=== PATIENT | female | born 1945 | race Caucasian/White ===

== ENCOUNTER 2020-01-29 11:06 | Inpatient (IN) | payer MEDICARE ==
--- NOTE | 2020-01-29 12:08 | RAD ---
RADIOGRAPH CHEST 1 VIEW: DATE: 01/29/2020 TIME: 11:59 AM HISTORY: 74-year-old, with positive female presents with nausea and vomiting COMPARISON: none FINDINGS: Faint, patchy ill-defined infiltrate-like densities at left midlung zone and retrocardiac portion of left lower lobe. Small, faint such region at right midlung zone. No cardiomegaly or pneumothorax. Lateral costophrenic angles are sharp. IMPRESSION: Bilateral infiltrates, left greater than right: Suspicious for viral pneumonia.
[2020-01-29 12:29] LABS: Bacteria/HPF 4+ HPF (None Seen); Bilirubin Negative (Negative); Blood, Urine 3+ (Negative); Clarity Turbid (Clear); Glucose, Urine (Dipstick) Greater than 1000 mg/dL (Negative); Ketone, Urine 40 mg/dL (Negative); Leukocyte Negative Leu/uL (Negative); Nitrite 1+ (Negative); Protein, Urine (Dipstick) 100 mg/dL (Neg-Trace); Specific Gravity, Urine 1.026 (1.002-1.036); Squamous Epithelial 0-3 HPF (0-3); Urobilinogen Normal mg/dL (Less than 2); pH, Urine 5.5 (5.0-9.0)
[2020-01-29 12:48] LABS: Analyzer IN Cardio ER; Base Excess (BEa) -3.6 mEq/L (-2.0 to +3.0); CO2 Tension 32.4 mmHg (35.0-45.0); Calcium, Ionized (arterial) 1.14 mmol/L (1.12-1.30); Carboxyhemoglobin (COHb) 0.4 gm% (0.0-3.0); Hemoglobin (Hb) 13.8 g/dL (12.0-16.0); Potassium - ABG Lab 3.44 mmol/L (3.70-5.30); pH, Arterial 7.41 (7.35-7.45)
[2020-01-29 12:50] LABS: #Lymphocytes 1.2 thou/uL (1.20-3.40); #Monocytes 0.6 thou/uL (0.11-0.59); #Neutrophils 7.7 thou/uL (1.40-6.50); %Basophils 0.1 % (0.0-1.0); %Eosinophils 0.1 % (0.0-10.0); %Lymphocytes 12.6 % (21.0-51.0); %Monocytes 5.8 % (0.0-10.0); %Neutrophils 81.4 % (42.0-75.0); Hemoglobin 13.5 g/dL (12.0-16.0); Mean Corpuscular HGB CONC 35.2 g/dL (32.0-36.0); Mean Corpuscular Hemoglobin 31.6 pg (27.0-31.0); Mean Corpuscular Volume 89.7 fL (78.0-98.0); Platelet Count 160 thou/uL (130-400); Red Blood Cell (RBC) Count 4.28 mill/uL (4.20-5.40); White Blood Cell (WBC) Count 9.4 thou/uL (4.8-10.8)
[2020-01-29 12:51] LABS: O2 Tension (PaO2), arterial 45.3 mmHg (> 70.0); Puncture Site LRA
[2020-01-29] MEDS ORDERED: Azithromycin 500 MG VIAL ONE (12:53)
[2020-01-29] MEDS ORDERED: cefTRIAXone\\ROCEPHIN 2 GM VIAL ONE (12:53)
[2020-01-29 13:11] LABS: ALT (SGPT) 22 U/L (8-55); AST (SGOT) 49 U/L (5-34); Albumin 3.6 g/dL (3.4-4.8); Alkaline Phosphatase 42 U/L (40-110); Anion Gap 17 mmol/L (10-20); BUN (Urea Nitrogen) 23 mg/dL (9.8-20.1); Bilirubin, Total 0.8 mg/dL (0.2-1.2); Calc. Creatinine Clearance 0 mL/min (70-130); Calcium 8.4 mg/dL (7.8-10.44); Carbon Dioxide 22 mmol/L (23-31); Chloride 99 mmol/L (98-107); Estimated GFR-MDRD 57; Glucose 110 mg/dL (83-110); Potassium 3.5 mmol/L (3.5-5.1); Protein, Total 6.6 g/dL (6.0-8.3); Sodium 134 mmol/L (136-145)
[2020-01-29 13:35] LABS: CKMB 6.4 ng/mL (0-6.6)
[2020-01-29] MEDS ORDERED: Iopamidol-370 76% 500 ML 1 ML ONE (13:49)
--- NOTE | 2020-01-29 15:05 | CT ---
CT PULMONARY ANGIOGRAM WITH IV CONTRAST AND 3D POSTPROCESSING: Date: 01/29/2020 HISTORY: Nausea, vomiting, weakness, COVID-positive. FINDINGS: There is good contrast opacification of the pulmonary arterial vasculature without filling defects to suggest pulmonary embolism. There are vascular calcifications without aneurysm or dissection of the thoracic aorta. Calcified lymph nodes are seen in the mediastinum consistent with old granulomatous d isease. No pleural or pericardial effusions are seen. There are patchy peripheral ground-glass opacit ies in the lung vincent bilaterally. Upper abdominal tomograms demonstrate changes of cholecystectomy. There are degenerative changes in the spine. IMPRESSION: 1. No CT evidence of pulmonary embolism. 2. Findings are consistent with COVID-19 pneumonia. POS: AH
[2020-01-29] MEDS ORDERED: Ondansetron PF 4 MG/2 ML Vial IVP PRN (15:14)
[2020-01-29] MEDS ORDERED: Acetaminophen 325 MG TAB PO PRN (15:14)
[2020-01-29] MEDS ORDERED: Dexamethasone 10 MG/ML VIAL SLOW IVP SCH (15:15)
[2020-01-29] MEDS ORDERED: Albuterol 200 PUFF (6.7GM INHALER) ONE (17:13)
[2020-01-29] MEDS ORDERED: Pharmacy to Dose REMDESIVIR IVPB PRN (17:30)
[2020-01-29 20:23] LABS: Troponin I 0.015 ng/mL (< 0.028)
--- NOTE | 2020-01-29 21:39 | HP ---
CHIEF COMPLAINT: Shortness of breath. HISTORY OF PRESENT ILLNESS: The patient is a 74-year-old female, who presents to the hospital with complaints of shortness of breath, which has been progressively gotten worse over the weekend. The patient states that where she works, her co-worker was infected with COVID at that time, so she came into the ER, I believe on the to get tested. At this time, she was notified that she was COVID positive. The patient stated that her condition worsened to the point that she became very weak. She was unable to eat or drink very much. When she was brought into the hospital, her sats were noted to be 86% on room air. However, by the EMS report, she was even lower than that. At this time, an ABG was done, which indicated significant hypoxia of PO2 of 45. At this time, she was put on a high flow and admitted to the hospital. PAST MEDICAL HISTORY: She has a history of; 1. Hyperlipidemia. 2. Hypertension. 3. Diabetes. PAST SURGICAL HISTORY: She has had a cholecystectomy. SOCIAL HISTORY: Denies any alcohol use, drug use. No smoking history. She is a full code. FAMILY HISTORY: No history of heart disease or stroke. ALLERGIES: NO KNOWN DRUG ALLERGIES. MEDICATIONS: She takes; 1. Atorvastatin 10 mg daily. 2. Metoprolol 50 mg daily. 3. Ramipril 10 mg daily. 4. Venlafaxine 37.5 mg daily. 5. Amlodipine 10 mg daily. 6. Jardiance 25 mg daily. 7. Januvia 100 mg daily. PHYSICAL EXAMINATION: VITAL SIGNS: As of the following; temperature of GENERAL: She is awake, alert, does not appear in any distress. CV: S1, S2 present. No murmurs, rubs, or gallops. ABDOMEN: Soft, nontender. Bowel sounds are present x2. LUNGS: Clear to auscultation. No rhonchi or wheezes noted. EXTREMITIES: No edema. Pedal pulses are present x2. NEUROVASCULAR: There are no focal deficits noted. SKIN: No cuts, lesions, or bruises noted. LABORATORY RESULTS: As of the following; troponin is normal. LDH is 611. CRP is 10. CT angio, no pulmonary emboli, however, consistent with COVID-like pattern. Troponin is mildly elevated, initially was 0.031. Her repeat one was normal. Sodium 134, potassium of 3.5, BUN 20, creatinine 0.96. PH of 7.41, pCO2 of 32.4, pO2 of 45.3. Her WBCs of 9.4, hemoglobin of 13.5, hematocrit of 38.4, platelets of 160. Her urinalysis was done, indicated 4+ bacteria. ASSESSMENT AND PLAN: The patient is a very pleasant 74-year-old female, who presents to the hospital with complaints of shortness of breath. 1. Acute hypoxemic respiratory failure, most likely secondary to COVID pneumonia. We will start the patient on some steroids. She will continue high-flow. She is most likely a candidate for remdesivir. We will talk with Infectious Disease. 2. Mildly elevated troponins, most likely demand related from the shortness of breath. We will trend it. Most likely, we will not be able to get an echo, given the fact that she is COVID. 3. Hypertension. We will continue home medications. 4. COVID pneumonia. Again, we will start her on some steroids and we will talk with Dr. Ma of remdesivir. 5. DVT prophylaxis. We will put the patient on Lovenox b.i.d. Job ID: [id number]
[2020-01-29] MEDS ORDERED: REMDESIVIR (EUA) 200 MG in Sodium Chloride 0.9% 250 ML 210 ML IV SCH (22:00)
[2020-01-30] MEDS: Enoxaparin Sodium 40 MG/0.4 ML SYRINGE SC SCH ×3 (00:46→21:16)
[2020-01-30] MEDS ORDERED: Dexamethasone 10 MG/ML VIAL SLOW IVP SCH (01:00)
[2020-01-30 05:02] LABS: #Lymphocytes 0.8 thou/uL (1.20-3.40); #Monocytes 0.3 thou/uL (0.11-0.59); #Neutrophils 7.8 thou/uL (1.40-6.50); %Basophils 0.2 % (0.0-1.0); %Lymphocytes 8.6 % (21.0-51.0); %Monocytes 2.8 % (0.0-10.0); %Neutrophils 88.4 % (42.0-75.0); Hemoglobin 12.8 g/dL (12.0-16.0); Mean Corpuscular HGB CONC 33.5 g/dL (32.0-36.0); Mean Corpuscular Hemoglobin 29.8 pg (27.0-31.0); Mean Platelet Volume 7.9 fL (7.4-10.4); Platelet Count 169 thou/uL (130-400); RBC Distribution Width 11.9 % (11.5-14.5); Red Blood Cell (RBC) Count 4.28 mill/uL (4.20-5.40); White Blood Cell (WBC) Count 8.8 thou/uL (4.8-10.8)
[2020-01-30 05:12] LABS: Anion Gap 15 mmol/L (10-20); BUN (Urea Nitrogen) 18 mg/dL (9.8-20.1); Calc. Creatinine Clearance 94 mL/min (70-130); Calcium 8.1 mg/dL (7.8-10.44); Carbon Dioxide 20 mmol/L (23-31); Chloride 104 mmol/L (98-107); Estimated GFR-MDRD 72; Glucose 101 mg/dL (83-110); Potassium 3.6 mmol/L (3.5-5.1); Sodium 135 mmol/L (136-145)
[2020-01-30] MEDS ORDERED: Dextrose 5% in Water 1,000 ML IV PRN (07:38)
[2020-01-30] MEDS ORDERED: Dextrose 50% Abboject 50 ML SYRINGE SLOW IVP PRN (07:38)
[2020-01-30] MEDS ORDERED: HumaLOG 300 UNITS/3 ML VIAL SC PRN (07:38)
[2020-01-30] MEDS: Ascorbic Acid 500 mg Chewable Tablet PO SCH (08:20)
[2020-01-30] MEDS: Zinc Sulfate 220 MG CAP PO SCH (08:21)
[2020-01-30] MEDS: Ramipril 5 MG CAP PO SCH (08:21)
[2020-01-30] MEDS: Amlodipine 10 MG TAB PO SCH (08:21)
[2020-01-30] MEDS: Venlafaxine XR 37.5 MG CAP PO SCH (08:21)
[2020-01-30] MEDS: Alogliptin 25 MG TAB PO SCH (08:21)
[2020-01-30] MEDS: Dexamethasone 4 mg/ml Vial SLOW IVP SCH (08:22)
[2020-01-30] MEDS: Atorvastatin Calcium 10 MG TAB PO SCH (08:22)
[2020-01-30] MEDS: Empagliflozin 25 MG TAB PO SCH (08:27)
[2020-01-30] MEDS ORDERED: Non-Formulary Item 1 EACH (Ramipril [Ramipril] 10 MG Capsule) PO SCH (09:00)
[2020-01-30] MEDS: cefTRIAXone\\ROCEPHIN 1 GM in Sodium Chloride 0.9% 100 ML IVPB SCH (12:02)
--- NOTE | 2020-01-30 13:58 | PDOC.HOSPP ---
- Subjective Encounter Date: 01/30/20 Encounter Time: 09:00 Subjective: Patient seen for follow-up regarding COVID-19 pneumonia. Reports shortness of breath with exertion. Denies chest pain. - Objective Vital Signs & Weight: Vital Signs (12 hours) Temp Pulse Resp BP Pulse Ox 01/30/20 11:00 77 28 H 145/58 H 96 01/30/20 08:21 79 01/30/20 08:00 98.4 F 76 36 H 121/56 L 94 L 01/30/20 03:42 98.8 F 79 18 131/59 L 97 Weight Weight 204 lb 11.2 oz Result Diagrams: 01/30/20 04:30 01/30/20 04:30 Additional Labs: Accuchecks 01/30/20 10:33 POC Glucose 145 H Labs and MAR reviewed by me EKG Reviewed by me: Yes (Telemetry: NSR) Hospitalist ROS - Review of Systems Constitutional: denies: fever, chills, sweats, weakness, malaise Respiratory: reports: cough, dry, SOB with excertion. denies: shortness of breath, hemoptysis, pleuritic pain, sputum, wheezing Cardiovascular: denies: chest pain, palpitations, orthopnea, paroxysmal noc. dyspnea, edema, light headedness Gastrointestinal: denies: nausea, vomiting, abdominal pain, diarrhea, constipation, melena, hematochezia Genitourinary: denies: dysuria, frequency, incontinence, hematuria, retention Skin: denies: rash, lesions, yoni, bruising - Medication Medications: Active Medications Generic Name Dose Route Start Last Admin Trade Name Hiq PRN Reason Stop Dose Admin Alogliptin Benzoate 25 mg 01/30/20 09:00 01/30/20 08:21 Alogliptin 25 Mg Tab PO 25 mg DAILY PIPO Administration Amlodipine Besylate 10 mg 01/30/20 09:00 01/30/20 08:21 Amlodipine 10 Mg Tab PO 10 mg DAILY PIPO Administration Ascorbic Acid 1,000 mg 01/30/20 09:00 01/30/20 08:20 Ascorbic Acid 500 Mg Chewable Tablet PO 1,000 mg DAILY PIPO Administration Atorvastatin Calcium 10 mg 01/30/20 09:00 01/30/20 08:22 Atorvastatin Calcium 10 Mg Tab PO 10 mg DAILY PIPO Administration Dexamethasone 6 mg 01/30/20 09:00 01/30/20 08:22 Dexamethasone 4 Mg/Ml Vial SLOW IVP 6 mg DAILY PIPO Administration Enoxaparin Sodium 40 mg 01/29/20 21:00 01/30/20 08:20 Enoxaparin Sodium 40 Mg/0.4 Ml Syringe SC 40 mg BID PIPO Administration Ceftriaxone Sodium 1 gm/ 100 mls @ 200 mls/hr 01/30/20 13:00 01/30/20 12:02 Sodium Chloride IVPB 100 mls Q24HR PIPO Administration Miscellaneous Medication 25 mg 01/30/20 09:00 01/30/20 08:27 Empagliflozin 25 Mg Tab PO 25 mg DAILY PIPO Administration Ramipril 10 mg 01/30/20 09:00 01/30/20 08:21 Ramipril 5 Mg Cap PO 10 mg DAILY PIPO Administration Sodium Chloride 10 ml 01/29/20 21:00 01/30/20 08:27 Flush - Normal Saline 10 Ml Syringe IVF 10 ml Q12HR PIPO Administration Venlafaxine HCl 37.5 mg 01/30/20 09:00 01/30/20 08:21 Venlafaxine Xr 37.5 Mg Cap PO 37.5 mg DAILY PIPO Administration Zinc Sulfate 220 mg 01/30/20 09:00 01/30/20 08:21 Zinc Sulfate 220 Mg Cap PO 220 mg DAILY PIPO Administration - Exam General Appearance: awake alert General - other findings: Obese ENT: normocephalic atraumatic Neck: supple, symmetric, no thyromegaly, no lymphadenopathy Heart: RRR, no gallops, no rubs, normal peripheral pulses Respiratory: CTAB, no wheezes, no rales, no ronchi, normal chest expansion Gastrointestinal: soft, non-tender, non-distended, normal bowel sounds Psychiatric: normal affect, normal behavior, A&O x 3 Hosp A/P (1) Pneumonia due to COVID-19 virus Code(s): U07.1 - COVID-19; J12.89 - OTHER VIRAL PNEUMONIA Status: Acute (2) Acute respiratory failure with hypoxia Code(s): J96.01 - ACUTE RESPIRATORY FAILURE WITH HYPOXIA Status: Acute (3) Urinary tract infection Status: Acute (4) Dyslipidemia Code(s): E78.5 - HYPERLIPIDEMIA, UNSPECIFIED Status: Chronic (5) Diabetes mellitus Code(s): E11.9 - TYPE 2 DIABETES MELLITUS WITHOUT COMPLICATIONS Status: Chronic (6) Hypertension Code(s): I10 - ESSENTIAL (PRIMARY) HYPERTENSION Status: Chronic - Plan Hypertension patient is on remdesivir, vitamin C and zinc. She is also on dexamethasone. Currently on high flow oxygen. Hypertension controlled. Reasonable control of blood sugars.
[2020-01-30] MEDS: REMDESIVIR (EUA) 100 MG in Sodium Chloride 0.9% 250 ML 230 ML IV SCH (21:17)
[2020-01-31 06:05] LABS: ALT (SGPT) 24 U/L (8-55); AST (SGOT) 45 U/L (5-34); Albumin 3.2 g/dL (3.4-4.8); Alkaline Phosphatase 47 U/L (40-110); Bilirubin, Direct 0.3 mg/dL (0.1-0.3); Bilirubin, Total 0.6 mg/dL (0.2-1.2); Protein, Total 6.4 g/dL (6.0-8.3)
[2020-01-31] MEDS: Empagliflozin 25 MG TAB PO SCH (08:10)
[2020-01-31] MEDS: Enoxaparin Sodium 40 MG/0.4 ML SYRINGE SC SCH ×2 (08:10→21:22)
[2020-01-31] MEDS: Alogliptin 25 MG TAB PO SCH (08:10)
[2020-01-31] MEDS: Zinc Sulfate 220 MG CAP PO SCH (08:11)
[2020-01-31] MEDS: Atorvastatin Calcium 10 MG TAB PO SCH (08:11)
[2020-01-31] MEDS: Ascorbic Acid 500 mg Chewable Tablet PO SCH (08:11)
[2020-01-31] MEDS: Venlafaxine XR 37.5 MG CAP PO SCH (08:11)
[2020-01-31] MEDS: Amlodipine 10 MG TAB PO SCH (08:11)
[2020-01-31] MEDS: Dexamethasone 4 mg/ml Vial SLOW IVP SCH (08:11)
[2020-01-31] MEDS: Ramipril 5 MG CAP PO SCH (08:11)
[2020-01-31] MEDS: cefTRIAXone\\ROCEPHIN 1 GM in Sodium Chloride 0.9% 100 ML IVPB SCH (11:55)
[2020-01-31] MEDS ORDERED: Sodium Chloride 0.65% Nasal 44 ML BOT EA NARE PRN (12:12)
--- NOTE | 2020-01-31 17:51 | PDOC.HOSPP ---
- Subjective Encounter Date: 01/31/20 Encounter Time: 17:00 Subjective: Patient seen for follow-up regarding pneumonia secondary to COVID-19 infection. She reports shortness of breath with exertion. - Objective Vital Signs & Weight: Vital Signs (12 hours) Temp Pulse Resp BP Pulse Ox Pulse Ox Pulse Ox 01/31/20 16:36 98.4 F 69 24 H 112/57 L 93 L 01/31/20 14:48 94 L 96 01/31/20 12:00 97.7 F 67 18 112/58 L 97 01/31/20 08:11 71 01/31/20 08:00 97.8 F 67 28 H 120/58 L 93 L 01/31/20 07:46 94 L Pulse Ox 01/31/20 16:36 01/31/20 14:48 95 01/31/20 12:00 01/31/20 08:11 01/31/20 08:00 01/31/20 07:46 Weight Weight 204 lb 11.2 oz Result Diagrams: 01/30/20 04:30 01/30/20 04:30 Additional Labs: Accuchecks 01/31/20 01/31/20 01/30/20 10:19 06:41 21:26 POC Glucose 202 H 162 H 157 H Labs and MAR reviewed by me EKG Reviewed by me: Yes (Telemetry shows normal sinus rhythm) Hospitalist ROS - Review of Systems Respiratory: reports: SOB with excertion. denies: cough, dry, shortness of breath, hemoptysis, pleuritic pain, sputum, wheezing Gastrointestinal: denies: nausea, vomiting, abdominal pain, diarrhea, constipat ion, melena, hematochezia - Medication Medications: Active Medications Generic Name Dose Route Start Last Admin Trade Name Freq PRN Reason Stop Dose Admin Acetaminophen 650 mg 01/29/20 15:14 01/31/20 11:55 Acetaminophen 325 Mg Tab PO 650 mg Q6H PRN Administration Headache/Fever/Mild Pain (1-3) Alogliptin Benzoate 25 mg 01/30/20 09:00 01/31/20 08:10 Alogliptin 25 Mg Tab PO 25 mg DAILY PIPO Administration Amlodipine Besylate 10 mg 01/30/20 09:00 01/31/20 08:11 Amlodipine 10 Mg Tab PO 10 mg DAILY PIPO Administration Ascorbic Acid 1,000 mg 01/30/20 09:00 01/31/20 08:11 Ascorbic Acid 500 Mg Chewable Tablet PO 1,000 mg DAILY PIPO Administration Atorvastatin Calcium 10 mg 01/30/20 09:00 01/31/20 08:11 Atorvastatin Calcium 10 Mg Tab PO 10 mg DAILY PIPO Administration Dexamethasone 6 mg 01/30/20 09:00 01/31/20 08:11 Dexamethasone 4 Mg/Ml Vial SLOW IVP 6 mg DAILY PIPO Administration Enoxaparin Sodium 40 mg 01/29/20 21:00 01/31/20 08:10 Enoxaparin Sodium 40 Mg/0.4 Ml Syringe SC 40 mg BID PIPO Administration Remdesivir 100 mg/ Sodium 250 mls @ 250 mls/hr 01/30/20 22:00 01/30/20 21:17 Chloride IV 02/02/20 22:59 250 mls 2200 PIPO Administration Metoprolol Succinate 50 mg 01/30/20 21:00 01/30/20 21:16 Metoprolol Succinate Xl 50 Mg Tab PO 50 mg HS PIPO Administration Miscellaneous Medication 25 mg 01/30/20 09:00 01/31/20 08:10 Empagliflozin 25 Mg Tab PO 25 mg DAILY PIPO Administration Ramipril 10 mg 01/30/20 09:00 01/31/20 08:11 Ramipril 5 Mg Cap PO 10 mg DAILY PIPO Administration Sodium Chloride 10 ml 01/29/20 21:00 01/31/20 08:14 Flush - Normal Saline 10 Ml Syringe IVF 10 ml Q12HR PIPO Administration Venlafaxine HCl 37.5 mg 01/30/20 09:00 01/31/20 08:11 Venlafaxine Xr 37.5 Mg Cap PO 37.5 mg DAILY PIPO Administration Zinc Sulfate 220 mg 01/30/20 09:00 01/31/20 08:11 Zinc Sulfate 220 Mg Cap PO 220 mg DAILY PIPO Administration - Exam General - other findings: Obesity Eye: anicteric sclera ENT: moist mucosa Neck: supple Heart: RRR Respiratory: CTAB Gastrointestinal: soft, non-tender Skin: no rashes Musculoskeletal: no muscle wasting Psychiatric: normal affect, normal behavior Hosp A/P (1) Pneumonia due to COVID-19 virus Code(s): U07.1 - COVID-19; J12.89 - OTHER VIRAL PNEUMONIA Status: Acute (2) Acute respiratory failure with hypoxia Code(s): J96.01 - ACUTE RESPIRATORY FAILURE WITH HYPOXIA Status: Acute (3) Urinary tract infection Status: Acute (4) Dyslipidemia Code(s): E78.5 - HYPERLIPIDEMIA, UNSPECIFIED Status: Chronic (5) Diabetes mellitus Code(s): E11.9 - TYPE 2 DIABETES MELLITUS WITHOUT COMPLICATIONS Status: C hronic (6) Hypertension Code(s): I10 - ESSENTIAL (PRIMARY) HYPERTENSION Status: Chronic - Plan Continue remdesivir, vitamin C, zinc and dexamethasone. Patient is currently on high flow oxygen. Hypertension controlled. Reasonable control of blood sugars. Continue ceftriaxone for Klebsiella urinary tract infection.
[2020-01-31] MEDS: REMDESIVIR (EUA) 100 MG in Sodium Chloride 0.9% 250 ML 230 ML IV SCH (21:22)
[2020-01-31] MEDS ORDERED: Guaifenesin DM 100-10/5 ML UDCUP PO PRN (23:23)
[2020-02-01 05:19] LABS: ALT (SGPT) 24 U/L (8-55); AST (SGOT) 32 U/L (5-34); Alkaline Phosphatase 54 U/L (40-110); Bilirubin, Direct 0.3 mg/dL (0.1-0.3); Bilirubin, Total 0.5 mg/dL (0.2-1.2); Protein, Total 5.8 g/dL (6.0-8.3)
[2020-02-01] MEDS: Amlodipine 10 MG TAB PO SCH (07:30)
[2020-02-01] MEDS: Alogliptin 25 MG TAB PO SCH (07:30)
[2020-02-01] MEDS: Atorvastatin Calcium 10 MG TAB PO SCH (07:31)
[2020-02-01] MEDS: cefTRIAXone\\ROCEPHIN 1 GM in Sodium Chloride 0.9% 100 ML IVPB SCH (07:31)
[2020-02-01] MEDS: Ascorbic Acid 500 mg Chewable Tablet PO SCH (07:31)
[2020-02-01] MEDS: Zinc Sulfate 220 MG CAP PO SCH (07:32)
[2020-02-01] MEDS: Ramipril 5 MG CAP PO SCH (07:32)
[2020-02-01] MEDS: Venlafaxine XR 37.5 MG CAP PO SCH (07:32)
[2020-02-01] MEDS: Empagliflozin 25 MG TAB PO SCH (07:33)
[2020-02-01] MEDS: Dexamethasone 4 mg/ml Vial SLOW IVP SCH (07:33)
[2020-02-01] MEDS: Enoxaparin Sodium 40 MG/0.4 ML SYRINGE SC SCH ×2 (07:34→20:29)
--- NOTE | 2020-02-01 17:00 | PDOC.HOSPP ---
- Subjective Encounter Date: 02/01/20 Encounter Time: 16:00 Subjective: Patient was seen for follow-up for COVID-19 pneumonia. Reports generalized weakness. - Objective Vital Signs & Weight: Vital Signs (12 hours) Temp Pulse Pulse Pulse Resp BP BP 02/01/20 16:15 69 67 101/54 L 104/55 L 02/01/20 15:56 96.7 F L 65 24 H 02/01/20 12:00 96.5 F L 71 24 H 02/01/20 11:09 02/01/20 08:00 97.7 F 65 24 H 02/01/20 05:20 BP Pulse Ox Pulse Ox Pulse Ox Pulse Ox 02/01/20 16:15 91 L 95 95 02/01/20 15:56 106/51 L 24 L 02/01/20 12:00 115/58 L 24 L 02/01/20 11:09 97 02/01/20 08:00 112/60 97 02/01/20 05:20 97 Weight Weight 204 lb 11.2 oz I&O: 01/31/20 02/01/20 02/02/20 06:59 06:59 06:59 Intake Total 890 120 Output Total 1250 250 Balance -360 -130 Result Diagrams: 01/30/20 04:30 01/30/20 04:30 Additional Labs: Accuchecks 02/01/20 02/01/20 01/31/20 10:53 06:05 16:33 POC Glucose 148 H 139 H 170 H I reviewed patient's labs and MAR EKG Reviewed by me: Yes (Normal sinus rhythm on telemetry) Hospitalist ROS - Review of Systems Constitutional: reports: weakness. denies: fever, chills, sweats, malaise Respiratory: reports: cough, dry, SOB with excertion. denies: shortness of breath, hemoptysis, pleuritic pain, sputum, wheezing - Medication Medications: Active Medications Generic Name Dose Route Start Last Admin Trade Name Freq PRN Reason Stop Dose Admin Acetaminophen 650 mg 01/29/20 15:14 01/31/20 11:55 Acetaminophen 325 Mg Tab PO 650 mg Q6H PRN Administration Headache/Fever/Mild Pain (1-3) Alogliptin Benzoate 25 mg 01/30/20 09:00 02/01/20 07:30 Alogliptin 25 Mg Tab PO 25 mg DAILY PIPO Administration Amlodipine Besylate 10 mg 01/30/20 09:00 02/01/20 07:30 Amlodipine 10 Mg Tab PO 10 mg DAILY PIPO Administration Ascorbic Acid 1,000 mg 01/30/20 09:00 02/01/20 07:31 Ascorbic Acid 500 Mg Chewable Tablet PO 1,000 mg DAILY PIPO Administration Atorvastatin Calcium 10 mg 01/30/20 09:00 02/01/20 07:31 Atorvastatin Calcium 10 Mg Tab PO 10 mg DAILY PIPO Administration Dexamethasone 6 mg 01/30/20 09:00 02/01/20 07:33 Dexamethasone 4 Mg/Ml Vial SLOW IVP 6 mg DAILY PIPO Administration Enoxaparin Sodium 40 mg 01/29/20 21:00 02/01/20 07:34 Enoxaparin Sodium 40 Mg/0.4 Ml Syringe SC 40 mg BID PIPO Administration Remdesivir 100 mg/ Sodium 250 mls @ 250 mls/hr 01/30/20 22:00 01/31/20 21:22 Chloride IV 02/02/20 22:59 250 mls 2200 PIPO Administration Ceftriaxone Sodium 1 gm/ 100 mls @ 200 mls/hr 02/01/20 09:00 02/01/20 07:31 Sodium Chloride IVPB 100 mls 0900 PIPO Administration Metoprolol Succinate 50 mg 01/30/20 21:00 01/31/20 21:24 Metoprolol Succinate Xl 50 Mg Tab PO 50 mg HS PIPO Administration Miscellaneous Medication 25 mg 01/30/20 09:00 02/01/20 07:33 Empagliflozin 25 Mg Tab PO 25 mg DAILY PIPO Administration Ramipril 10 mg 01/30/20 09:00 02/01/20 07:32 Ramipril 5 Mg Cap PO 10 mg DAILY PIPO Administration Sodium Chloride 10 ml 01/29/20 21:00 02/01/20 07:32 Flush - Normal Saline 10 Ml Syringe IVF 10 ml Q12HR IPPO Administration Venlafaxine HCl 37.5 mg 01/30/20 09:00 02/01/20 07:32 Venlafaxine Xr 37.5 Mg Cap PO 37.5 mg DAILY PIPO Administration Zinc Sulfate 220 mg 01/30/20 09:00 02/01/20 07:32 Zinc Sulfate 220 Mg Cap PO 220 mg DAILY PIPO Administration - Exam General - other findings: Obese ENT: no oropharyngeal lesions Neck: no thyromegaly, no lymphadenopathy Heart: RRR Respiratory: CTAB Gastrointestinal: soft, non-tender Extremities: no edema Skin: no rashes Psychiatric: normal affect Hosp A/P (1) Pneumonia due to COVID-19 virus Code(s): U07.1 - COVID-19; J12.89 - OTHER VIRAL PNEUMONIA Status: Acute (2) Acute respiratory failure with hypoxia Code(s): J96.01 - ACUTE RESPIRATORY FAILURE WITH HYPOXIA Status: Acute (3) Urinary tract infection Status: Acute (4) Dyslipidemia Code(s): E78.5 - HYPERLIPIDEMIA, UNSPECIFIED Status: Chronic (5) Diabetes mellitus Code(s): E11.9 - TYPE 2 DIABETES MELLITUS WITHOUT COMPLICATIONS Status: Chronic (6) Hypertension Code(s): I10 - ESSENTIAL (PRIMARY) HYPERTENSION Status: Chronic - Plan High flow oxygen. Patient is on remdesivir, vitamin C, zinc and dexamethasone. Add Mucinex Hypertension controlled. Reasonable control of blood sugars. Continue ceftriaxone for Klebsiella urinary tract infection.
[2020-02-01] MEDS ORDERED: guaiFENesin ER 600 MG TAB PO SCH (17:15)
[2020-02-01] MEDS: guaiFENesin ER 600 MG TAB PO SCH (20:29)
[2020-02-01] MEDS: REMDESIVIR (EUA) 100 MG in Sodium Chloride 0.9% 250 ML 230 ML IV SCH (20:30)
[2020-02-02 06:11] LABS: ALT (SGPT) 25 U/L (8-55); AST (SGOT) 30 U/L (5-34); Albumin 2.9 g/dL (3.4-4.8); Alkaline Phosphatase 55 U/L (40-110); Bilirubin, Direct 0.3 mg/dL (0.1-0.3); Bilirubin, Total 0.6 mg/dL (0.2-1.2); Protein, Total 5.5 g/dL (6.0-8.3)
[2020-02-02] MEDS: cefTRIAXone\\ROCEPHIN 1 GM in Sodium Chloride 0.9% 100 ML IVPB SCH (08:46)
[2020-02-02] MEDS: Zinc Sulfate 220 MG CAP PO SCH (08:47)
[2020-02-02] MEDS: Ramipril 5 MG CAP PO SCH (08:47)
[2020-02-02] MEDS: Venlafaxine XR 37.5 MG CAP PO SCH (08:47)
[2020-02-02] MEDS: Enoxaparin Sodium 40 MG/0.4 ML SYRINGE SC SCH ×2 (08:47→21:02)
[2020-02-02] MEDS: Empagliflozin 25 MG TAB PO SCH (08:47)
[2020-02-02] MEDS: Ascorbic Acid 500 mg Chewable Tablet PO SCH (08:47)
[2020-02-02] MEDS: Amlodipine 10 MG TAB PO SCH (08:47)
[2020-02-02] MEDS: Alogliptin 25 MG TAB PO SCH (08:47)
[2020-02-02] MEDS: Atorvastatin Calcium 10 MG TAB PO SCH (08:48)
[2020-02-02] MEDS: Dexamethasone 4 mg/ml Vial SLOW IVP SCH (08:48)
[2020-02-02] MEDS: guaiFENesin ER 600 MG TAB PO SCH ×2 (08:48→21:02)
--- NOTE | 2020-02-02 15:50 | PDOC.HOSPP ---
- Subjective Encounter Date: 02/02/20 Encounter Time: 08:00 Subjective: Patient seen for follow-up regarding COVID-19 pneumonia. She reports that cough has improved after starting Mucinex. - Objective Vital Signs & Weight: Vital Signs (12 hours) Temp Pulse Resp BP Pulse Ox 02/02/20 12:00 97.7 F 69 28 H 119/65 93 L 02/02/20 09:00 98.1 F 59 L 28 H 116/55 L 90 L 02/02/20 08:47 69 02/02/20 05:08 94 L 02/02/20 04:06 97.9 F 69 22 H 119/60 94 L Weight Weight 204 lb 11.2 oz I&O: 02/01/20 02/02/20 02/03/20 06:59 06:59 06:59 Intake Total 890 1190 Output Total 1250 750 Balance -360 440 Result Diagrams: 01/30/20 04:30 01/30/20 04:30 Additional Labs: Accuchecks 02/02/20 02/02/20 02/01/20 11:41 05:35 20:35 POC Glucose 179 H 137 H 263 H 02/01/20 17:23 POC Glucose 227 H Labs and MAR reviewed by me EKG Reviewed by me: Yes (Normal sinus rhythm on telemetry) Hospitalist ROS - Review of Systems Respiratory: reports: cough, sputum. denies: dry, shortness of breath, hemoptysis, SOB with excertion, pleuritic pain, wheezing Cardiovascular: denies: chest pain, palpitations, orthopnea, paroxysmal noc. dyspnea, edema, light headedness - Medication Medications: Active Medications Generic Name Dose Route Start Last Admin Trade Name Freq PRN Reason Stop Dose Admin Acetaminophen 650 mg 01/29/20 15:14 01/31/20 11:55 Acetaminophen 325 Mg Tab PO 650 mg Q6H PRN Administration Headache/Fever/Mild Pain (1-3) Alogliptin Benzoate 25 mg 01/30/20 09:00 02/02/20 08:47 Alogliptin 25 Mg Tab PO 25 mg DAILY PIPO Administration Amlodipine Besylate 10 mg 01/30/20 09:00 02/02/20 08:47 Amlodipine 10 Mg Tab PO 10 mg DAILY PIPO Administration Ascorbic Acid 1,000 mg 01/30/20 09:00 02/02/20 08:47 Ascorbic Acid 500 Mg Chewable Tablet PO 1,000 mg DAILY PIPO Administration Atorvastatin Calcium 10 mg 01/30/20 09:00 02/02/20 08:48 Atorvastatin Calcium 10 Mg Tab PO 10 mg DAILY PIPO Administration Dexamethasone 6 mg 01/30/20 09:00 02/02/20 08:48 Dexamethasone 4 Mg/Ml Vial SLOW IVP 6 mg DAILY PIPO Administration Enoxaparin Sodium 40 mg 01/29/20 21:00 02/02/20 08:47 Enoxaparin Sodium 40 Mg/0.4 Ml Syringe SC 40 mg BID PIPO Administration Guaifenesin 600 mg 02/01/20 21:00 02/02/20 08:48 Guaifenesin Er 600 Mg Tab PO 600 mg Q12HR PIPO Administration Remdesivir 100 mg/ Sodium 250 mls @ 250 mls/hr 01/30/20 22:00 02/01/20 20:30 Chloride IV 02/02/20 22:59 250 mls 2200 PIPO Administration Ceftriaxone Sodium 1 gm/ 100 mls @ 200 mls/hr 02/01/20 09:00 02/02/20 08:46 Sodium Chloride IVPB 100 mls 0900 PIPO Administration Metoprolol Succinate 50 mg 01/30/20 21:00 02/01/20 20:29 Metoprolol Succinate Xl 50 Mg Tab PO 50 mg HS PIPO Administration Miscellaneous Medication 25 mg 01/30/20 09:00 02/02/20 08:47 Empagliflozin 25 Mg Tab PO 25 mg DAILY PIPO Administration Ramipril 10 mg 01/30/20 09:00 02/02/20 08:47 Ramipril 5 Mg Cap PO 10 mg DAILY PIPO Administration Sodium Chloride 10 ml 01/29/20 21:00 02/02/20 08:46 Flush - Normal Saline 10 Ml Syringe IVF 10 ml Q12HR PIPO Administration Venlafaxine HCl 37.5 mg 01/30/20 09:00 02/02/20 08:47 Venlafaxine Xr 37.5 Mg Cap PO 37.5 mg DAILY PIPO Administration Zinc Sulfate 220 mg 01/30/20 09:00 02/02/20 08:47 Zinc Sulfate 220 Mg Cap PO 220 mg DAILY PIPO Administration - Exam General - other findings: Obese ENT: normocephalic atraumatic Neck: no thyromegaly Heart: RRR Respiratory: CTAB Gastrointestinal: soft, non-tender Skin: no lesions, no rashes Psychiatric: normal affect, normal behavior Hosp A/P (1) Pneumonia due to COVID-19 virus Code(s): U07.1 - COVID-19; J12.89 - OTHER VIRAL PNEUMONIA Status: Acute (2) Acute respiratory failure with hypoxia Code(s): J96.01 - ACUTE RESPIRATORY FAILURE WITH HYPOXIA Status: Acute (3) Urinary tract infection Status: Acute (4) Hypertension Code(s): I10 - ESSENTIAL (PRIMARY) HYPERTENSION Status: Chronic (5) Dyslipidemia Code(s): E78.5 - HYPERLIPIDEMIA, UNSPECIFIED Status: Chronic (6) Diabetes mellitus Code(s): E11.9 - TYPE 2 DIABETES MELLITUS WITHOUT COMPLICATIONS Status: Chronic - Plan Patient is a pleasant 74-year-old lady who was admitted to the hospital on 2019 for acute hypoxic respiratory failure secondary to Covid pneumonia. Patient was started on steroids and remdesivir. She was also started on high flow oxygen. She continues to be on high flow oxygen. Last dose of remdesivir is February 03, 2020. Patient is also receiving zinc and vitamin C. patient also has Klebsiella urinary tract infection, which is being treated with ceftriaxone. Continue high flow oxygen. Continue remdesivir, vitamin C, zinc and dexamethasone. Continue Mucinex Hypertension controlled. Reasonable control of blood sugars. Continue ceftriaxone for Klebsiella urinary tract infection.
[2020-02-02] MEDS: REMDESIVIR (EUA) 100 MG in Sodium Chloride 0.9% 250 ML 230 ML IV SCH (23:58)
[2020-02-03 04:46] LABS: #Lymphocytes 0.9 thou/uL (1.20-3.40); #Monocytes 0.4 thou/uL (0.11-0.59); #Neutrophils 7.9 thou/uL (1.40-6.50); %Basophils 0.1 % (0.0-1.0); %Eosinophils 0.1 % (0.0-10.0); %Lymphocytes 9.4 % (21.0-51.0); %Monocytes 3.8 % (0.0-10.0); %Neutrophils 86.7 % (42.0-75.0); Mean Corpuscular HGB CONC 34.4 g/dL (32.0-36.0); Mean Platelet Volume 7.4 fL (7.4-10.4); Platelet Count 182 thou/uL (130-400); RBC Distribution Width 11.6 % (11.5-14.5); Red Blood Cell (RBC) Count 4.19 mill/uL (4.20-5.40); White Blood Cell (WBC) Count 9.1 thou/uL (4.8-10.8)
[2020-02-03 05:14] LABS: Anion Gap 14 mmol/L (10-20); BUN (Urea Nitrogen) 27 mg/dL (9.8-20.1); CRP (Inflammatory) 3.25 mg/dL (= or < 0.5); Calc. Creatinine Clearance 108 mL/min (70-130); Calcium 7.9 mg/dL (7.8-10.44); Carbon Dioxide 22 mmol/L (23-31); Chloride 104 mmol/L (98-107); Estimated GFR-MDRD 85; Glucose 127 mg/dL (83-110); Potassium 4.1 mmol/L (3.5-5.1); Sodium 136 mmol/L (136-145)
[2020-02-03] MEDS ORDERED: Cepastat Lozenges 1 LOZ PO PRN (08:12)
[2020-02-03] MEDS ORDERED: Loperamide HCl 2 MG CAP PO PRN (08:12)
[2020-02-03] MEDS ORDERED: Benzonatate 100 MG CAP PO PRN (08:12)
[2020-02-03] MEDS ORDERED: Ondansetron ODT 4 MG TAB PO PRN (08:12)
[2020-02-03] MEDS ORDERED: HYDROcodone/Acetaminophen 5/325 mg Tablet PO PRN (08:12)
[2020-02-03] MEDS ORDERED: hydrALAZINE 20 MG/ML VIAL SLOW IVP PRN (08:12)
[2020-02-03] MEDS ORDERED: Calcium Carbonate 500 MG ChewTAB PO PRN (08:12)
[2020-02-03] MEDS ORDERED: Loratadine 10 MG TAB PO PRN (08:12)
[2020-02-03] MEDS ORDERED: Zolpidem Tartrate 5 MG TAB PO PRN (08:12)
[2020-02-03] MEDS: Famotidine 20 MG TAB PO SCH ×2 (10:02→21:28)
[2020-02-03] MEDS: Ascorbic Acid 500 mg Chewable Tablet PO SCH (10:02)
[2020-02-03] MEDS: Venlafaxine XR 37.5 MG CAP PO SCH (10:02)
[2020-02-03] MEDS: Enoxaparin Sodium 40 MG/0.4 ML SYRINGE SC SCH ×2 (10:03→21:29)
[2020-02-03] MEDS: Atorvastatin Calcium 10 MG TAB PO SCH (10:03)
[2020-02-03] MEDS: Amlodipine 10 MG TAB PO SCH (10:03)
[2020-02-03] MEDS: guaiFENesin ER 600 MG TAB PO SCH ×2 (10:03→21:28)
[2020-02-03] MEDS: Zinc Sulfate 220 MG CAP PO SCH (10:04)
[2020-02-03] MEDS: Ramipril 5 MG CAP PO SCH (10:04)
[2020-02-03] MEDS: Alogliptin 25 MG TAB PO SCH (10:04)
[2020-02-03] MEDS: Dexamethasone 4 mg/ml Vial SLOW IVP SCH (10:05)
[2020-02-03] MEDS: cefTRIAXone\\ROCEPHIN 1 GM in Sodium Chloride 0.9% 100 ML IVPB SCH (10:07)
[2020-02-03] MEDS: Empagliflozin 25 MG TAB PO SCH (10:09)
--- NOTE | 2020-02-03 11:25 | PDOC.HOSPP ---
- Subjective Encounter Date: 02/03/20 Encounter Time: 08:30 Subjective: Patient seen and examined bedside today, patient is still on high flow oxygen, no overnight event, patient does not have any new complaint - Objective Vital Signs & Weight: Vital Signs (12 hours) Temp Pulse Resp BP Pulse Ox 02/03/20 10:40 97.8 F 64 22 H 120/59 L 95 02/03/20 07:45 98.4 F 64 16 119/58 L 93 L 02/03/20 02:59 98.1 F 60 16 110/60 95 Weight Weight 205 lb 11.2 oz I&O: 02/02/20 02/03/20 02/04/20 06:59 06:59 06:59 Intake Total 1190 1200 Output Total 750 1750 Balance 440 -550 Result Diagrams: 02/03/20 04:17 02/03/20 04:17 Additional Labs: Accuchecks 02/03/20 02/02/20 02/02/20 10:32 21:06 16:44 POC Glucose 141 H 222 H 198 H 02/02/20 11:41 POC Glucose 179 H Radiology Reviewed by me: Yes EKG Reviewed by me: Yes Hospitalist ROS - Review of Systems Constitutional: reports: weakness. denies: fever, chills, sweats, malaise, other ENT: denies: ear pain, ear discharge, nose pain, nose discharge, nose conge stion, mouth pain, mouth swelling, throat pain, throat swelling, other Respiratory: reports: shortness of breath, SOB with excertion. denies: cough, dry, hemoptysis, pleuritic pain, sputum, wheezing, other Cardiovascular: denies: chest pain, palpitations, orthopnea, paroxysmal noc. dyspnea, edema, light headedness, other Gastrointestinal: denies: nausea, vomiting, abdominal pain, diarrhea, constipation, melena, hematochezia, other Genitourinary: denies: dysuria, frequency, incontinence, hematuria, retention, other Musculoskeletal: denies: neck pain, shoulder pain, arm pain, back pain, hand pain, leg pain, foot pain, other - Medication Medications: Active Medications Generic Name Dose Route Start Last Admin Trade Name Freq PRN Reason Stop Dose Admin Acetaminophen 650 mg 01/29/20 15:14 01/31/20 11:55 Acetaminophen 325 Mg Tab PO 650 mg Q6H PRN Administration Headache/Fever/Mild Pain (1-3) Alogliptin Benzoate 25 mg 01/30/20 09:00 02/03/20 10:04 Alogliptin 25 Mg Tab PO 25 mg DAILY PIPO Administration Amlodipine Besylate 10 mg 01/30/20 09:00 02/03/20 10:03 Amlodipine 10 Mg Tab PO 10 mg DAILY PIPO Administration Ascorbic Acid 1,000 mg 01/30/20 09:00 02/03/20 10:02 Ascorbic Acid 500 Mg Chewable Tablet PO 1,000 mg DAILY PIPO Administration Atorvastatin Calcium 10 mg 01/30/20 09:00 02/03/20 10:03 Atorvastatin Calcium 10 Mg Tab PO 10 mg DAILY PIPO Administration Dexamethasone 6 mg 01/30/20 09:00 02/03/20 10:05 Dexamethasone 4 Mg/Ml Vial SLOW IVP 6 mg DAILY PIPO Administration Enoxaparin Sodium 40 mg 01/29/20 21:00 02/03/20 10:03 Enoxaparin Sodium 40 Mg/0.4 Ml Syringe SC 40 mg BID PIPO Administration Famotidine 20 mg 02/03/20 09:00 02/03/20 10:02 Famotidine 20 Mg Tab PO 20 mg BID PIPO Administration Guaifenesin 600 mg 02/01/20 21:00 02/03/20 10:03 Guaifenesin Er 600 Mg Tab PO 600 mg Q12HR PIPO Administration Ceftriaxone Sodium 1 gm/ 100 mls @ 200 mls/hr 02/01/20 09:00 02/03/20 10:07 Sodium Chloride IVPB 100 mls 0900 PIPO Administration Metoprolol Succinate 50 mg 01/30/20 21:00 02/02/20 21:02 Metoprolol Succinate Xl 50 Mg Tab PO 50 mg HS PIPO Administration Miscellaneous Medication 25 mg 01/30/20 09:00 02/03/20 10:09 Empagliflozin 25 Mg Tab PO 25 mg DAILY PIPO Administration Ramipril 10 mg 01/30/20 09:00 02/03/20 10:04 Ramipril 5 Mg Cap PO 10 mg DAILY PIPO Administration Sodium Chloride 10 ml 01/29/20 21:00 02/03/20 10:09 Flush - Normal Saline 10 Ml Syringe IVF 10 ml Q12HR PIPO Administration Sodium Chloride 10 ml 01/29/20 19:45 02/03/20 10:10 Flush - Normal Saline 10 Ml Syringe IVF 10 ml PRN PRN Administration Saline Flush Venlafaxine HCl 37.5 mg 01/30/20 09:00 02/03/20 10:02 Venlafaxine Xr 37.5 Mg Cap PO 37.5 mg DAILY PIPO Administration Zinc Sulfate 220 mg 01/30/20 09:00 02/03/20 10:04 Zinc Sulfate 220 Mg Cap PO 220 mg DAILY PIPO Administration - Exam General Appearance: NAD, awake alert Eye: PERRL, anicteric sclera ENT: normocephalic atraumatic, no oropharyngeal lesions Neck: supple, symmetric, no JVD, no thyromegaly Heart: RRR, no murmur, no gallops, no rubs Respiratory: no wheezes, no rales, no ronchi Respiratory - other findings: Air entry reduced at base Gastrointestinal: soft, non-tender, non-distended, normal bowel sounds Extremities: no clubbing, no edema Skin: normal turgor, no lesions Neurological: no focal deficits Musculoskeletal: normal tone, normal strength Psychiatric: normal affect, normal behavior Hosp A/P (1) Acute respiratory failure with hypoxia Code(s): J96.01 - ACUTE RESPIRATORY FAILURE WITH HYPOXIA Status: Acute (2) Pneumonia due to COVID-19 virus Code(s): U07.1 - COVID-19; J12.89 - OTHER VIRAL PNEUMONIA Status: Acute (3) Urinary tract infection Status: Acute Qualifiers: Urinary tract infection type: acute cystitis Hematuria presence: without hematuria Qualified Code(s): N30.00 - Acute cystitis without hematuria (4) Diabetes mellitus Code(s): E11.9 - TYPE 2 DIABETES MELLITUS WITHOUT COMPLICATIONS Status: Chronic Qualifiers: Diabetes mellitus type: type 2 Diabetes mellitus usp insulin use: with exterminator helper use Diabetes mellitus complication status: without complication Qualified Code(s): E11.9 - Type 2 diabetes mellitus without complications; Z79.4 - care home (current) use of insulin (5) Dyslipidemia Code(s): E78.5 - HYPERLIPIDEMIA, UNSPECIFIED Status: Chronic (6) Hypertension Code(s): I10 - ESSENTIAL (PRIMARY) HYPERTENSION Status: Chronic Qualifiers: Hypertension type: essential hypertension Qualified Code(s): I10 - Essential (primary) hypertension (7) Obesity (BMI 30.0-34.9) Code(s): E66.9 - OBESITY, UNSPECIFIED Status: Chronic - Plan old records reviewed/req, respiratory therapy, DVT proph w/lovenox Plan Continue empiric Rocephin Wean off oxygen as tolerated Continue PT OT Continue dexamethasone Continue vitamin supplementation Medication reviewed and continue provide symptomatic and supportive care We will repeat labs on Wednesday Change dexamethasone p.o. Moderate sliding scale insulin
--- NOTE | 2020-02-03 16:29 | EKG ---
Test Reason : Blood Pressure : / mmHG Vent. Rate : 084 BPM Atrial Rate : 084 BPM P-R Int : 150 ms QRS Dur : 102 ms QT Int : 376 ms P-R-T Axes : 057 -36 -11 degrees QTc Int : 444 ms Normal sinus rhythm Left axis deviation Minimal voltage criteria for LVH, may be normal variant Abnormal ECG Confirmed by REUBEN CALABRESE DO ([id number]), food expeditor BRAYAN MOON ([id number]) on 02/03/2020 4:28:38 PM Referred By: Confirmed By:REUBEN CALABRESE DO
[2020-02-03] MEDS: HumaLOG 300 UNITS/3 ML VIAL SC PRN ×2 (16:54→21:30)
[2020-02-03] MEDS: Senokot S 8.6-50 MG TAB PO PRN (21:28)
[2020-02-04] MEDS: Dexamethasone 4 MG TAB PO SCH (07:49)
[2020-02-04] MEDS: Amlodipine 10 MG TAB PO SCH (07:50)
[2020-02-04] MEDS: Alogliptin 25 MG TAB PO SCH (07:50)
[2020-02-04] MEDS: Empagliflozin 25 MG TAB PO SCH (07:51)
[2020-02-04] MEDS: Ascorbic Acid 500 mg Chewable Tablet PO SCH (07:51)
[2020-02-04] MEDS: Famotidine 20 MG TAB PO SCH ×2 (07:51→20:53)
[2020-02-04] MEDS: Atorvastatin Calcium 10 MG TAB PO SCH (07:51)
[2020-02-04] MEDS: Enoxaparin Sodium 40 MG/0.4 ML SYRINGE SC SCH ×2 (07:51→20:53)
[2020-02-04] MEDS: Venlafaxine XR 37.5 MG CAP PO SCH (07:52)
[2020-02-04] MEDS: cefTRIAXone\\ROCEPHIN 1 GM in Sodium Chloride 0.9% 100 ML IVPB SCH (07:52)
[2020-02-04] MEDS: guaiFENesin ER 600 MG TAB PO SCH ×2 (07:52→20:53)
[2020-02-04] MEDS: Ramipril 5 MG CAP PO SCH (07:52)
[2020-02-04] MEDS: Zinc Sulfate 220 MG CAP PO SCH (07:52)
--- NOTE | 2020-02-04 10:10 | PDOC.HOSPP ---
- Subjective Encounter Date: 02/04/20 Encounter Time: 08:00 Subjective: Patient seen and examined bedside today, patient does not have any new complaint, patient still on high flow oxygen - Objective Vital Signs & Weight: Vital Signs (12 hours) Temp Pulse Resp BP Pulse Ox 02/04/20 08:00 97.3 F L 64 20 118/63 94 L 02/04/20 04:33 98.2 F 65 26 H 140/72 95 02/03/20 23:12 98.7 F 63 24 H 115/68 98 Weight Weight 205 lb 11.2 oz I&O: 02/03/20 02/04/20 02/05/20 06:59 06:59 06:59 Intake Total 1200 180 Output Total 1750 1250 Balance -550 -1070 Result Diagrams: 02/03/20 04:17 02/03/20 04:17 Additional Labs: Accuchecks 02/04/20 02/03/20 02/03/20 05:32 20:28 16:35 POC Glucose 111 H 230 H 189 H 02/03/20 10:32 POC Glucose 141 H Hospitalist ROS - Review of Systems ENT: denies: ear pain, ear discharge, nose pain, nose discharge, nose congestion, mouth pain, mouth swelling, throat pain, throat swelling, other Respiratory: reports: shortness of breath, SOB with excertion. denies: cough, dry, hemoptysis, pleuritic pain, sputum, wheezing, other Cardiovascular: denies: chest pain, palpitations, orthopnea, paroxysmal noc. dyspnea, edema, light headedness, other Gastrointestinal: denies: nausea, vomiting, abdominal pain, diarrhea, constipation, melena, hematochezia, other Genitourinary: denies: dysuria, frequency, incontinence, hematuria, retention, other Musculoskeletal: denies: neck pain, shoulder pain, arm pain, back pain, hand pain, leg pain, foot pain, other - Medication Medications: Active Medications Generic Name Dose Route Start Last Admin Trade Name Freq PRN Reason Stop Dose Admin Acetaminophen 650 mg 01/29/20 15:14 01/31/20 11:55 Acetaminophen 325 Mg Tab PO 650 mg Q6H PRN Administration Headache/Fever/Mild Pain (1-3) Alogliptin Benzoate 25 mg 01/30/20 09:00 02/04/20 07:50 Alogliptin 25 Mg Tab PO 25 mg DAILY PIPO Administration Amlodipine Besylate 10 mg 01/30/20 09:00 02/04/20 07:50 Amlodipine 10 Mg Tab PO 10 mg DAILY PIPO Administration Ascorbic Acid 1,000 mg 01/30/20 09:00 02/04/20 07:51 Ascorbic Acid 500 Mg Chewable Tablet PO 1,000 mg DAILY PIPO Administration Atorvastatin Calcium 10 mg 01/30/20 09:00 02/04/20 07:51 Atorvastatin Calcium 10 Mg Tab PO 10 mg DAILY PIPO Administration Dexamethasone 6 mg 02/04/20 08:00 02/04/20 07:49 Dexamethasone 4 Mg Tab PO 6 mg QAM-WM PIPO Administration Enoxaparin Sodium 40 mg 01/29/20 21:00 02/04/20 07:51 Enoxaparin Sodium 40 Mg/0.4 Ml Syringe SC 40 mg BID PIPO Administration Famotidine 20 mg 02/03/20 09:00 02/04/20 07:51 Famotidine 20 Mg Tab PO 20 mg BID PIPO Administration Guaifenesin 600 mg 02/01/20 21:00 02/04/20 07:52 Guaifenesin Er 600 Mg Tab PO 600 mg Q12HR PIPO Administration Ceftriaxone Sodium 1 gm/ 100 mls @ 200 mls/hr 02/01/20 09:00 02/04/20 07:52 Sodium Chloride IVPB 100 mls 0900 PIPO Administration Insulin Human Lispro 0 units 02/03/20 08:10 02/03/20 16:54 Humalog 300 Units/3 Ml Vial SC 2 unit .MODERATE SLIDING SC PRN Administration Moderate Correctional Scale Insulin Human Lispro 0 units 02/03/20 08:10 02/03/20 21:30 Humalog 300 Units/3 Ml Vial SC 2 unit .BEDTIME SLIDING SC PRN Administration Bedtime Correctional Scale Metoprolol Succinate 50 mg 01/30/20 21:00 02/03/20 21:28 Metoprolol Succinate Xl 50 Mg Tab PO 50 mg HS PIPO Administration Miscellaneous Medication 25 mg 01/30/20 09:00 02/04/20 07:51 Empagliflozin 25 Mg Tab PO 25 mg DAILY PIPO Administration Ramipril 10 mg 01/30/20 09:00 02/04/20 07:52 Ramipril 5 Mg Cap PO 10 mg DAILY PIPO Administration Senna/Docusate Sodium 2 tab 02/03/20 08:12 02/03/20 21:28 Senokot S 8.6-50 Mg Tab PO 2 tab BID PRN Administration Constipation Sodium Chloride 10 ml 01/29/20 21:00 02/04/20 07:52 Flush - Normal Saline 10 Ml Syringe IVF 10 ml Q12HR PIPO Administration Sodium Chloride 10 ml 01/29/20 19:45 02/03/20 10:10 Flush - Normal Saline 10 Ml Syringe IVF 10 ml PRN PRN Administration Saline Flush Venlafaxine HCl 37.5 mg 01/30/20 09:00 02/04/20 07:52 Venlafaxine Xr 37.5 Mg Cap PO 37.5 mg DAILY PIPO Administration Zinc Sulfate 220 mg 01/30/20 09:00 02/04/20 07:52 Zinc Sulfate 220 Mg Cap PO 220 mg DAILY PIPO Administration - Exam General Appearance: NAD, awake alert Eye: PERRL, anicteric sclera ENT: normocephalic atraumatic, no oropharyngeal lesions Neck: supple, symmetric, no JVD, no thyromegaly Heart: no murmur, no gallops, no rubs Respiratory: no wheezes, no rales, no ronchi Gastrointestinal: soft, non-tender, non-distended, normal bowel sounds Extremities: no cyanosis, no clubbing, no edema Skin: normal turgor, no lesions Neurological: no focal deficits Musculoskeletal: normal tone, normal strength Psychiatric: normal affect, normal behavior Hosp A/P (1) Acute respiratory failure with hypoxia Code(s): J96.01 - ACUTE RESPIRATORY FAILURE WITH HYPOXIA Status: Acute (2) Pneumonia due to COVID-19 virus Code(s): U07.1 - COVID-19; J12.89 - OTHER VIRAL PNEUMONIA Status: Acute (3) Urinary tract infection Status: Acute Qualifiers: Urinary tract infection type: acute cystitis Hematuria presence: without hematuria Qualified Code(s): N30.00 - Acute cystitis without hematuria (4) Diabetes mellitus Code(s): E11.9 - TYPE 2 DIABETES MELLITUS WITHOUT COMPLICATIONS Status: Chronic Qualifiers: Diabetes mellitus type: type 2 Diabetes mellitus half-way insulin use: with remote computer terminal operator use Diabetes mellitus complication status: without complication Qualified Code(s): E11.9 - Type 2 diabetes mellitus without complications; Z79.4 - terminal manager (current) use of insulin (5) Dyslipidemia Code(s): E78.5 - HYPERLIPIDEMIA, UNSPECIFIED Status: Chronic (6) Hypertension Code(s): I10 - ESSENTIAL (PRIMARY) HYPERTENSION Status: Chronic Qualifiers: Hypertension type: essential hypertension Qualified Code(s): I10 - Essential (primary) hypertension (7) Obesity (BMI 30.0-34.9) Code(s): E66.9 - OBESITY, UNSPECIFIED Status: Chronic - Plan old records reviewed/req, plan discussed w/ family, continue antibiotics, respiratory therapy, DVT proph w/lovenox Plan Continue empiric Rocephin Wean off oxygen as tolerated Continue PT OT Continue dexamethasone Continue vitamin supplementation Medication reviewed and continue provide symptomatic and supportive care We will repeat labs tomorrow Ambulate as tolerated Updated to patient's family member on phone and they are requesting possible evaluation for detention home if needed
[2020-02-04] MEDS: Bisacodyl 5 MG TAB PO PRN (20:53)
[2020-02-04] MEDS: HumaLOG 300 UNITS/3 ML VIAL SC PRN (21:43)
[2020-02-05 05:11] LABS: #Eosinphils 0.1 thou/uL (0.0-0.7); #Lymphocytes 1.1 thou/uL (1.20-3.40); #Monocytes 0.4 thou/uL (0.11-0.59); #Neutrophils 8.5 thou/uL (1.40-6.50); %Basophils 0.1 % (0.0-1.0); %Eosinophils 0.6 % (0.0-10.0); %Lymphocytes 10.9 % (21.0-51.0); %Monocytes 3.8 % (0.0-10.0); %Neutrophils 84.6 % (42.0-75.0); Hemoglobin 13.7 g/dL (12.0-16.0); Mean Corpuscular HGB CONC 34.2 g/dL (32.0-36.0); Mean Corpuscular Hemoglobin 30.7 pg (27.0-31.0); Mean Corpuscular Volume 89.7 fL (78.0-98.0); Platelet Count 199 thou/uL (130-400); RBC Distribution Width 11.6 % (11.5-14.5); Red Blood Cell (RBC) Count 4.46 mill/uL (4.20-5.40)
[2020-02-05 05:32] LABS: Anion Gap 11 mmol/L (10-20); BUN (Urea Nitrogen) 23 mg/dL (9.8-20.1); CRP (Inflammatory) 1.57 mg/dL (= or < 0.5); Calc. Creatinine Clearance 104 mL/min (70-130); Calcium 8.2 mg/dL (7.8-10.44); Carbon Dioxide 28 mmol/L (23-31); Chloride 102 mmol/L (98-107); Estimated GFR-MDRD 81; Glucose 113 mg/dL (83-110); Potassium 4.3 mmol/L (3.5-5.1); Sodium 137 mmol/L (136-145)
[2020-02-05] MEDS: Ramipril 5 MG CAP PO SCH (08:25)
[2020-02-05] MEDS: Alogliptin 25 MG TAB PO SCH (08:25)
[2020-02-05] MEDS: Dexamethasone 4 MG TAB PO SCH (08:25)
[2020-02-05] MEDS: Empagliflozin 25 MG TAB PO SCH (08:26)
[2020-02-05] MEDS: Amlodipine 10 MG TAB PO SCH (08:26)
[2020-02-05] MEDS: Atorvastatin Calcium 10 MG TAB PO SCH (08:26)
[2020-02-05] MEDS: cefTRIAXone\\ROCEPHIN 1 GM in Sodium Chloride 0.9% 100 ML IVPB SCH (08:26)
[2020-02-05] MEDS: guaiFENesin ER 600 MG TAB PO SCH ×2 (08:27→21:37)
[2020-02-05] MEDS: Bisacodyl 5 MG TAB PO PRN (08:27)
[2020-02-05] MEDS: Venlafaxine XR 37.5 MG CAP PO SCH (08:27)
[2020-02-05] MEDS: Enoxaparin Sodium 40 MG/0.4 ML SYRINGE SC SCH ×2 (08:27→21:37)
[2020-02-05] MEDS: Famotidine 20 MG TAB PO SCH ×2 (08:27→21:37)
[2020-02-05] MEDS: Zinc Sulfate 220 MG CAP PO SCH (08:27)
[2020-02-05] MEDS: Ascorbic Acid 500 mg Chewable Tablet PO SCH (08:31)
--- NOTE | 2020-02-05 10:16 | PDOC.HOSPP ---
- Subjective Encounter Date: 02/05/20 Encounter Time: 07:55 Subjective: Patient is overall stable, she is on high flow oxygen, patient subjectively feels very weak, today she reports that from hospital she needs to go to residential home to get strength back before she go home - Objective Vital Signs & Weight: Vital Signs (12 hours) Temp Pulse Resp BP Pulse Ox 02/05/20 08:46 98 F 63 20 142/70 H 96 02/05/20 05:05 98.8 F 60 20 124/72 99 02/05/20 00:00 98.5 F 72 20 128/62 100 Weight Weight 205 lb 11.2 oz I&O: 02/04/20 02/05/20 02/06/20 06:59 06:59 06:59 Intake Total 180 940 Output Total 1250 500 Balance -1070 440 Result Diagrams: 02/05/20 04:41 02/05/20 04:41 Additional Labs: Accuchecks 02/05/20 02/04/20 04:58 12:01 POC Glucose 123 H 193 H EKG Reviewed by me: Yes Hospitalist ROS - Review of Systems Constitutional: reports: weakness, malaise. denies: fever, chills, sweats, other Respiratory: reports: shortness of breath, SOB with excertion. denies: cough, dry, hemoptysis, pleuritic pain, sputum, wheezing, other Cardiovascular: denies: chest pain, palpitations, orthopnea, paroxysmal noc. dyspnea, edema, light headedness, other Gastrointestinal: denies: nausea, vomiting, abdominal pain, diarrhea, constipation, melena, hematochezia, other Genitourinary: denies: dysuria, frequency, incontinence, hematuria, retention, other Musculoskeletal: denies: neck pain, shoulder pain, arm pain, back pain, hand pain, leg pain, foot pain, other - Medication Medications: Active Medications Generic Name Dose Route Start Last Admin Trade Name Freq PRN Reason Stop Dose Admin Acetaminophen 650 mg 01/29/20 15:14 01/31/20 11:55 Acetaminophen 325 Mg Tab PO 650 mg Q6H PRN Administration Headache/Fever/Mild Pain (1-3) Alogliptin Benzoate 25 mg 01/30/20 09:00 02/05/20 08:25 Alogliptin 25 Mg Tab PO 25 mg DAILY PIPO Administration Amlodipine Besylate 10 mg 01/30/20 09:00 02/05/20 08:26 Amlodipine 10 Mg Tab PO 10 mg DAILY PIPO Administration Ascorbic Acid 1,000 mg 01/30/20 09:00 02/05/20 08:31 Ascorbic Acid 500 Mg Chewable Tablet PO 1,000 mg DAILY PIPO Administration Atorvastatin Calcium 10 mg 01/30/20 09:00 02/05/20 08:26 Atorvastatin Calcium 10 Mg Tab PO 10 mg DAILY PIPO Administration Bisacodyl 10 mg 02/03/20 08:12 02/05/20 08:27 Bisacodyl 5 Mg Tab PO 10 mg DAILYPRN PRN Administration Constipation Dexamethasone 6 mg 02/04/20 08:00 02/05/20 08:25 Dexamethasone 4 Mg Tab PO 6 mg QAM-WM PIPO Administration Enoxaparin Sodium 40 mg 01/29/20 21:00 02/05/20 08:27 Enoxaparin Sodium 40 Mg/0.4 Ml Syringe SC 40 mg BID PIPO Administration Famotidine 20 mg 02/03/20 09:00 02/05/20 08:27 Famotidine 20 Mg Tab PO 20 mg BID PIPO Administration Guaifenesin 600 mg 02/01/20 21:00 02/05/20 08:27 Guaifenesin Er 600 Mg Tab PO 600 mg Q12HR PIPO Administration Ceftriaxone Sodium 1 gm/ 100 mls @ 200 mls/hr 02/01/20 09:00 02/05/20 08:26 Sodium Chloride IVPB 100 mls 0900 PIPO Administration Insulin Human Lispro 0 units 02/03/20 08:10 02/03/20 16:54 Humalog 300 Units/3 Ml Vial SC 2 unit .MODERATE SLIDING SC PRN Administration Moderate Correctional Scale Insulin Human Lispro 0 units 02/03/20 08:10 02/04/20 21:43 Humalog 300 Units/3 Ml Vial SC 2 unit .BEDTIME SLIDING SC PRN Administration Bedtime Correctional Scale Metoprolol Succinate 50 mg 01/30/20 21:00 02/04/20 20:53 Metoprolol Succinate Xl 50 Mg Tab PO 50 mg HS PIPO Administration Miscellaneous Medication 25 mg 01/30/20 09:00 02/05/20 08:26 Empagliflozin 25 Mg Tab PO 25 mg DAILY PIPO Administration Ramipril 10 mg 01/30/20 09:00 02/05/20 08:25 Ramipril 5 Mg Cap PO 10 mg DAILY PIPO Administration Senna/Docusate Sodium 2 tab 02/03/20 08:12 02/03/20 21:28 Senokot S 8.6-50 Mg Tab PO 2 tab BID PRN Administration Constipation Sodium Chloride 10 ml 01/29/20 21:00 02/05/20 08:27 Flush - Normal Saline 10 Ml Syringe IVF 10 ml Q12HR PIPO Administration Sodium Chloride 10 ml 01/29/20 19:45 02/03/20 10:10 Flush - Normal Saline 10 Ml Syringe IVF 10 ml PRN PRN Administration Saline Flush Venlafaxine HCl 37.5 mg 01/30/20 09:00 02/05/20 08:27 Venlafaxine Xr 37.5 Mg Cap PO 37.5 mg DAILY PIPO Administration Zinc Sulfate 220 mg 01/30/20 09:00 02/05/20 08:27 Zinc Sulfate 220 Mg Cap PO 220 mg DAILY PIPO Administration - Exam General Appearance: NAD, awake alert Eye: PERRL, anicteric sclera ENT: normocephalic atraumatic, no oropharyngeal lesions Neck: symmetric, no JVD, no thyromegaly Heart: RRR, no murmur, no gallops, no rubs Respiratory: no wheezes, no rales, no ronchi Gastrointestinal: soft, non-tender, non-distended, normal bowel sounds, no palpable masses Extremities: no cyanosis, no clubbing, no edema Skin: normal turgor, no lesions Neurological: no focal deficits Musculoskeletal: normal tone, normal strength Psychiatric: normal affect, normal behavior Hosp A/P (1) Acute respiratory failure with hypoxia Code(s): J96.01 - ACUTE RESPIRATORY FAILURE WITH HYPOXIA Status: Acute (2) Pneumonia due to COVID-19 virus Code(s): U07.1 - COVID-19; J12.89 - OTHER VIRAL PNEUMONIA Status: Acute (3) Urinary tract infection Status: Acute Qualifiers: Urinary tract infection type: acute cystitis Hematuria presence: without hematuria Qualified Code(s): N30.00 - Acute cystitis without hematuria (4) Diabetes mellitus Code(s): E11.9 - TYPE 2 DIABETES MELLITUS WITHOUT COMPLICATIONS Status: Chronic Qualifiers: Diabetes mellitus type: type 2 Diabetes mellitus ferry terminal supervisor insulin use: with fdc use Diabetes mellitus complication status: without complication Qualified Code(s): E11.9 - Type 2 diabetes mellitus without complications; Z79.4 - long-term (current) use of insulin (5) Dyslipidemia Code(s): E78.5 - HYPERLIPIDEMIA, UNSPECIFIED Status: Chronic (6) Hypertension Code(s): I10 - ESSENTIAL (PRIMARY) HYPERTENSION Status: Chronic Qualifiers: Hypertension type: essential hypertension Qualified Code(s): I10 - Essential (primary) hypertension (7) Obesity (BMI 30.0-34.9) Code(s): E66.9 - OBESITY, UNSPECIFIED Status: Chronic - Plan old records reviewed/req, PT/OT, social media content manager, respiratory therapy, DVT proph w/lovenox Plan Regarding COVID-19 perspective patient is stable, her oxygen needs to be weaned off gradually as tolerated every day basis, While in hospital patient needs daily PT OT Patient will need residential home placement upon discharge so patient case manager consultation placed Discontinue Rocephin today We will discontinue dexamethasone after total 10 days of therapy I have reviewed medication and continue provide symptomatic and supportive care
[2020-02-06] MEDS: Enoxaparin Sodium 40 MG/0.4 ML SYRINGE SC SCH ×2 (07:53→20:06)
[2020-02-06] MEDS: guaiFENesin ER 600 MG TAB PO SCH ×2 (07:53→20:07)
[2020-02-06] MEDS: Alogliptin 25 MG TAB PO SCH (07:53)
[2020-02-06] MEDS: Famotidine 20 MG TAB PO SCH ×2 (07:53→20:06)
[2020-02-06] MEDS: Venlafaxine XR 37.5 MG CAP PO SCH (07:53)
[2020-02-06] MEDS: Ascorbic Acid 500 mg Chewable Tablet PO SCH (07:53)
[2020-02-06] MEDS: Ramipril 5 MG CAP PO SCH (07:53)
[2020-02-06] MEDS: Atorvastatin Calcium 10 MG TAB PO SCH (07:54)
[2020-02-06] MEDS: Empagliflozin 25 MG TAB PO SCH (07:54)
[2020-02-06] MEDS: Zinc Sulfate 220 MG CAP PO SCH (07:54)
[2020-02-06] MEDS: Amlodipine 10 MG TAB PO SCH (07:54)
[2020-02-06] MEDS: Dexamethasone 4 MG TAB PO SCH (07:54)
--- NOTE | 2020-02-06 11:11 | PDOC.HOSPP ---
- Subjective Encounter Date: 02/06/20 Encounter Time: : Subjective: Patient seen and examined. No new complaints. No overnight events, other than physical weakness patient is doing overall better, she is still on high flow oxygen - Objective Vital Signs & Weight: Vital Signs (12 hours) Temp Pulse Resp BP Pulse Ox 02/06/20 10:26 93 L 02/06/20 08:10 98.8 F 65 15 121/66 98 02/06/20 04:00 99 F 65 15 114/56 L 100 02/06/20 00:00 58 L 100 Weight Weight 205 lb 11.2 oz I&O: 02/05/20 02/06/20 02/07/20 06:59 06:59 06:59 Intake Total 940 1060 Output Total 500 500 Balance 440 560 Result Diagrams: 02/05/20 04:41 02/05/20 04:41 Additional Labs: Accuchecks 02/06/20 02/05/20 02/05/20 05:54 21:42 16:37 POC Glucose 105 H 218 H 180 H 02/05/20 02/04/20 12:03 21:07 POC Glucose 177 H 227 H EKG Reviewed by me: Yes Hospitalist ROS - Review of Systems Constitutional: reports: weakness, malaise. denies: fever, chills, sweats, other Respiratory: reports: shortness of breath, SOB with excertion. denies: cough, dry, hemoptysis, pleuritic pain, sputum, wheezing, other Cardiovascular: denies: chest pain, palpitations, orthopnea, paroxysmal noc. dyspnea, edema, light headedness, other Gastrointestinal: denies: nausea, vomiting, abdominal pain, diarrhea, constipa tion, melena, hematochezia, other Genitourinary: denies: dysuria, frequency, incontinence, hematuria, retention, other Musculoskeletal: denies: neck pain, shoulder pain, arm pain, back pain, hand pain, leg pain, foot pain, other - Medication Medications: Active Medications Generic Name Dose Route Start Last Admin Trade Name Freq PRN Reason Stop Dose Admin Acetaminophen 650 mg 01/29/20 15:14 01/31/20 11:55 Acetaminophen 325 Mg Tab PO 650 mg Q6H PRN Administration Headache/Fever/Mild Pain (1-3) Alogliptin Benzoate 25 mg 01/30/20 09:00 02/06/20 07:53 Alogliptin 25 Mg Tab PO 25 mg DAILY PIPO Administration Amlodipine Besylate 10 mg 01/30/20 09:00 02/06/20 07:54 Amlodipine 10 Mg Tab PO 10 mg DAILY PIPO Administration Ascorbic Acid 1,000 mg 01/30/20 09:00 02/06/20 07:53 Ascorbic Acid 500 Mg Chewable Tablet PO 1,000 mg DAILY PIPO Administration Atorvastatin Calcium 10 mg 01/30/20 09:00 02/06/20 07:54 Atorvastatin Calcium 10 Mg Tab PO 10 mg DAILY PIPO Administration Bisacodyl 10 mg 02/03/20 08:12 02/05/20 08:27 Bisacodyl 5 Mg Tab PO 10 mg DAILYPRN PRN Administration Constipation Dexamethasone 6 mg 02/04/20 08:00 02/06/20 07:54 Dexamethasone 4 Mg Tab PO 6 mg QAM-WM PIPO Administration Enoxaparin Sodium 40 mg 01/29/20 21:00 02/06/20 07:53 Enoxaparin Sodium 40 Mg/0.4 Ml Syringe SC 40 mg BID PIPO Administration Famotidine 20 mg 02/03/20 09:00 02/06/20 07:53 Famotidine 20 Mg Tab PO 20 mg BID PIPO Administration Guaifenesin 600 mg 02/01/20 21:00 02/06/20 07:53 Guaifenesin Er 600 Mg Tab PO 600 mg Q12HR PIPO Administration Insulin Human Lispro 0 units 02/03/20 08:10 02/03/20 16:54 Humalog 300 Units/3 Ml Vial SC 2 unit .MODERATE SLIDING SC PRN Administration Moderate Correctional Scale Insulin Human Lispro 0 units 02/03/20 08:10 02/04/20 21:43 Humalog 300 Units/3 Ml Vial SC 2 unit .BEDTIME SLIDING SC PRN Administration Bedtime Correctional Scale Metoprolol Succinate 50 mg 01/30/20 21:00 02/05/20 21:37 Metoprolol Succinate Xl 50 Mg Tab PO 50 mg HS PIPO Administration Miscellaneous Medication 25 mg 01/30/20 09:00 02/06/20 07:54 Empagliflozin 25 Mg Tab PO 25 mg DAILY PIPO Administration Ramipril 10 mg 01/30/20 09:00 02/06/20 07:53 Ramipril 5 Mg Cap PO 10 mg DAILY PIPO Administration Senna/Docusate Sodium 2 tab 02/03/20 08:12 02/03/20 21:28 Senokot S 8.6-50 Mg Tab PO 2 tab BID PRN Administration Constipation Sodium Chloride 10 ml 01/29/20 21:00 02/06/20 07:53 Flush - Normal Saline 10 Ml Syringe IVF 10 ml Q12HR PIPO Administration Sodium Chloride 10 ml 01/29/20 19:45 02/03/20 10:10 Flush - Normal Saline 10 Ml Syringe IVF 10 ml PRN PRN Administration Saline Flush Venlafaxine HCl 37.5 mg 01/30/20 09:00 02/06/20 07:53 Venlafaxine Xr 37.5 Mg Cap PO 37.5 mg DAILY PIPO Administration Zinc Sulfate 220 mg 01/30/20 09:00 02/06/20 07:54 Zinc Sulfate 220 Mg Cap PO 220 mg DAILY PIPO Administration - Exam General Appearance: NAD, awake alert Eye: PERRL, anicteric sclera ENT: normocephalic atraumatic, no oropharyngeal lesions Neck: symmetric, no JVD, no thyromegaly Heart: RRR, no murmur, no gallops, no rubs Respiratory: no wheezes, no rales, no ronchi Gastrointestinal: soft, non-tender, non-distended, normal bowel sounds Extremities: no cyanosis, no clubbing Skin: normal turgor, no lesions Neurological: no focal deficits Musculoskeletal: normal tone, normal strength Psychiatric: normal affect, normal behavior Hosp A/P (1) Acute respiratory failure with hypoxia Code(s): J96.01 - ACUTE RESPIRATORY FAILURE WITH HYPOXIA Status: Acute (2) Pneumonia due to COVID-19 virus Code(s): U07.1 - COVID-19; J12.89 - OTHER VIRAL PNEUMONIA Status: Acute (3) Urinary tract infection Status: Acute Qualifiers: Urinary tract infection type: acute cystitis Hematuria presence: without hematuria Qualified Code(s): N30.00 - Acute cystitis without hematuria (4) Diabetes mellitus Code(s): E11.9 - TYPE 2 DIABETES MELLITUS WITHOUT COMPLICATIONS Status: Chronic Qualifiers: Diabetes mellitus type: type 2 Diabetes mellitus long term care phlebotomist insulin use: with long term care phlebotomist use Diabetes mellitus complication status: without complication Qualified Code(s): E11.9 - Type 2 diabetes mellitus without complications; Z79.4 - detention (current) use of insulin (5) Dyslipidemia Code(s): E78.5 - HYPERLIPIDEMIA, UNSPECIFIED Status: Chronic (6) Hypertension Code(s): I10 - ESSENTIAL (PRIMARY) HYPERTENSION Status: Chronic Qualifiers: Hypertension type: essential hypertension Qualified Code(s): I10 - Essential (primary) hypertension (7) Obesity (BMI 30.0-34.9) Code(s): E66.9 - OBESITY, UNSPECIFIED Status: Chronic - Plan old records reviewed/req, PT/OT, respiratory therapy, DVT proph w/lovenox Plan I have discussed with the charge nurse to initiate PT OT on this particular patient, and also requested RT to reduce her oxygen as tolerated to keep saturation above 92% Based on her oxygen requirement and physical activity will decide whether patient can go home or she will benefit from [facility], patient prefers to go to [facility], Discontinue dexamethasone after total 10 days of therapy Medication reviewed and continue to provide symptomatic and supportive care
[2020-02-06] MEDS: HumaLOG 300 UNITS/3 ML VIAL SC PRN ×2 (12:52→20:29)
[2020-02-07] MEDS: Alogliptin 25 MG TAB PO SCH (08:40)
[2020-02-07] MEDS: Dexamethasone 4 MG TAB PO SCH (08:40)
[2020-02-07] MEDS: Empagliflozin 25 MG TAB PO SCH (08:40)
[2020-02-07] MEDS: Famotidine 20 MG TAB PO SCH ×2 (08:42→20:41)
[2020-02-07] MEDS: Venlafaxine XR 37.5 MG CAP PO SCH (08:42)
[2020-02-07] MEDS: guaiFENesin ER 600 MG TAB PO SCH ×2 (08:42→20:41)
[2020-02-07] MEDS: Atorvastatin Calcium 10 MG TAB PO SCH (08:43)
[2020-02-07] MEDS: Ascorbic Acid 500 mg Chewable Tablet PO SCH (08:43)
[2020-02-07] MEDS: Amlodipine 10 MG TAB PO SCH (08:43)
[2020-02-07] MEDS: Zinc Sulfate 220 MG CAP PO SCH (08:43)
[2020-02-07] MEDS: Enoxaparin Sodium 40 MG/0.4 ML SYRINGE SC SCH ×2 (08:44→20:40)
[2020-02-07] MEDS: Ramipril 5 MG CAP PO SCH (08:47)
--- NOTE | 2020-02-07 17:48 | PDOC.HOSPP ---
- Subjective Encounter Date: 02/07/20 Encounter Time: 12:30 Subjective: Patient up in bed denies any complaints. - Objective Vital Signs & Weight: Vital Signs (12 hours) Temp Pulse Resp BP Pulse Ox Pulse Ox Pulse Ox 02/07/20 17:00 98.3 F 78 18 116/65 98 02/07/20 14:55 94 L 02/07/20 14:10 94 L 96 02/07/20 11:04 98.5 F 68 18 111/57 L 96 02/07/20 08:43 58 L 02/07/20 08:00 98.4 F 86 18 120/62 98 Weight Weight 205 lb 11.2 oz I&O: 02/06/20 02/07/20 02/08/20 06:59 06:59 06:59 Intake Total 1060 240 Output Total 500 300 Balance 560 -60 Result Diagrams: 02/05/20 04:41 02/05/20 04:41 Additional Labs: Accuchecks 02/07/20 02/07/20 02/07/20 16:58 11:03 06:00 POC Glucose 292 H 183 H 123 H 02/06/20 20:12 POC Glucose 339 H Hospitalist ROS - Review of Systems Respiratory: reports: shortness of breath Cardiovascular: denies: chest pain, palpitations, orthopnea, paroxysmal noc. dyspnea, edema, light headedness, other Gastrointestinal: denies: nausea, vomiting, abdominal pain, diarrhea, constipation, melena, hematochezia, other Genitourinary: denies: dysuria, frequency, incontinence, hematuria, retention, other - Medication Medications: Active Medications Generic Name Dose Route Start Last Admin Trade Name Carlos PRN Reason Stop Dose Admin Acetaminophen 650 mg 01/29/20 15:14 01/31/20 11:55 Acetaminophen 325 Mg Tab PO 650 mg Q6H PRN Administration Headache/Fever/Mild Pain (1-3) Alogliptin Benzoate 25 mg 01/30/20 09:00 02/07/20 08:40 Alogliptin 25 Mg Tab PO 25 mg DAILY PIPO Administration Amlodipine Besylate 10 mg 01/30/20 09:00 02/07/20 08:43 Amlodipine 10 Mg Tab PO 10 mg DAILY PIPO Administration Ascorbic Acid 1,000 mg 01/30/20 09:00 02/07/20 08:43 Ascorbic Acid 500 Mg Chewable Tablet PO 1,000 mg DAILY PIPO Administration Atorvastatin Calcium 10 mg 01/30/20 09:00 02/07/20 08:43 Atorvastatin Calcium 10 Mg Tab PO 10 mg DAILY PIPO Administration Bisacodyl 10 mg 02/03/20 08:12 02/05/20 08:27 Bisacodyl 5 Mg Tab PO 10 mg DAILYPRN PRN Administration Constipation Dexamethasone 6 mg 02/04/20 08:00 02/07/20 08:40 Dexamethasone 4 Mg Tab PO 6 mg QAM-WM PIPO Administration Enoxaparin Sodium 40 mg 01/29/20 21:00 02/07/20 08:44 Enoxaparin Sodium 40 Mg/0.4 Ml Syringe SC 40 mg BID PIPO Administration Famotidine 20 mg 02/03/20 09:00 02/07/20 08:42 Famotidine 20 Mg Tab PO 20 mg BID PIPO Administration Guaifenesin 600 mg 02/01/20 21:00 02/07/20 08:42 Guaifenesin Er 600 Mg Tab PO 600 mg Q12HR PIPO Administration Insulin Human Lispro 0 units 02/03/20 08:10 02/06/20 12:52 Humalog 300 Units/3 Ml Vial SC 2 unit .MODERATE SLIDING SC PRN Administration Moderate Correctional Scale Insulin Human Lispro 0 units 02/03/20 08:10 02/06/20 20:29 Humalog 300 Units/3 Ml Vial SC 4 unit .BEDTIME SLIDING SC PRN Administration Bedtime Correctional Scale Metoprolol Succinate 50 mg 01/30/20 21:00 02/06/20 20:07 Metoprolol Succinate Xl 50 Mg Tab PO 50 mg HS PIPO Administration Miscellaneous Medication 25 mg 01/30/20 09:00 02/07/20 08:40 Empagliflozin 25 Mg Tab PO 25 mg DAILY PIPO Administration Ramipril 10 mg 01/30/20 09:00 02/07/20 08:47 Ramipril 5 Mg Cap PO 10 mg DAILY PIPO Administration Senna/Docusate Sodium 2 tab 02/03/20 08:12 02/03/20 21:28 Senokot S 8.6-50 Mg Tab PO 2 tab BID PRN Administration Constipation Sodium Chloride 10 ml 01/29/20 21:00 02/07/20 08:47 Flush - Normal Saline 10 Ml Syringe IVF 10 ml Q12HR PIPO Administration Sodium Chloride 10 ml 01/29/20 19:45 02/03/20 10:10 Flush - Normal Saline 10 Ml Syringe IVF 10 ml PRN PRN Administration Saline Flush Venlafaxine HCl 37.5 mg 01/30/20 09:00 02/07/20 08:42 Venlafaxine Xr 37.5 Mg Cap PO 37.5 mg DAILY PIPO Administration Zinc Sulfate 220 mg 01/30/20 09:00 02/07/20 08:43 Zinc Sulfate 220 Mg Cap PO 220 mg DAILY PIPO Administration - Exam Heart: negative: RRR, no murmur, no gallops, no rubs, normal peripheral pulses, irregular, diminshed peripheral pulses, murmur present, II/IV, III/IV Gastrointestinal: negative: soft, non-tender, non-distended, normal bowel sounds, no palpable masses, no hepatomegaly, no splenomegaly, no bruit, no gua rding, no rigidity, tender to palpation, distended, diminished bowl sounds, voluntary guarding Extremities: negative: no cyanosis, no clubbing, no edema, 1+ LE edema, 2+ LE ed jennifer, clubbing Hosp A/P (1) Acute respiratory failure with hypoxia Code(s): J96.01 - ACUTE RESPIRATORY FAILURE WITH HYPOXIA Status: Acute (2) Pneumonia due to COVID-19 virus Code(s): U07.1 - COVID-19; J12.89 - OTHER VIRAL PNEUMONIA Status: Acute (3) Diabetes mellitus Code(s): E11.9 - TYPE 2 DIABETES MELLITUS WITHOUT COMPLICATIONS Status: Chronic Qualifiers: Diabetes mellitus type: type 2 Diabetes mellitus skilled nursing insulin use: with skilled nursing use Diabetes mellitus complication status: without complication Qualified Code(s): E11.9 - Type 2 diabetes mellitus without complications; Z79.4 - intermodal owner operator truck driver (current) use of insulin (4) Dyslipidemia Code(s): E78.5 - HYPERLIPIDEMIA, UNSPECIFIED Status: Chronic (5) Hypertension Code(s): I10 - ESSENTIAL (PRIMARY) HYPERTENSION Status: Chronic Qualifiers: Hypertension type: essential hypertension Qualified Code(s): I10 - Essent ial (primary) hypertension (6) Obesity (BMI 30.0-34.9) Code(s): E66.9 - OBESITY, UNSPECIFIED Status: Chronic - Plan Patient continues to be on high flow. We will continue steroids and DVT prophylaxis. Patient desaturates on minimal exertion. Denies any diarrhea is eating well. Continue to monitor her inflammatory markers.
[2020-02-07] MEDS: HumaLOG 300 UNITS/3 ML VIAL SC PRN ×2 (18:26→21:03)
[2020-02-07] MEDS: Senokot S 8.6-50 MG TAB PO PRN (21:06)
[2020-02-08] MEDS: Enoxaparin Sodium 40 MG/0.4 ML SYRINGE SC SCH ×2 (09:54→20:06)
[2020-02-08] MEDS: Alogliptin 25 MG TAB PO SCH (09:54)
[2020-02-08] MEDS: guaiFENesin ER 600 MG TAB PO SCH ×2 (09:54→20:05)
[2020-02-08] MEDS: Dexamethasone 4 MG TAB PO SCH (09:54)
[2020-02-08] MEDS: Venlafaxine XR 37.5 MG CAP PO SCH (09:56)
[2020-02-08] MEDS: Ramipril 5 MG CAP PO SCH (09:56)
[2020-02-08] MEDS: Zinc Sulfate 220 MG CAP PO SCH (09:56)
[2020-02-08] MEDS: Famotidine 20 MG TAB PO SCH ×2 (09:56→20:05)
[2020-02-08] MEDS: Atorvastatin Calcium 10 MG TAB PO SCH (09:57)
[2020-02-08] MEDS: Ascorbic Acid 500 mg Chewable Tablet PO SCH (09:57)
[2020-02-08] MEDS: Amlodipine 10 MG TAB PO SCH (09:57)
[2020-02-08] MEDS: Empagliflozin 25 MG TAB PO SCH (10:27)
[2020-02-08 11:16] VITALS: BMI 29.5
--- NOTE | 2020-02-08 14:00 | PDOC.HOSPP ---
- Subjective Encounter Date: 02/08/20 Encounter Time: 10:30 Subjective: pt up in bed on high flow. - Objective Vital Signs & Weight: Vital Signs (12 hours) Temp Pulse Resp BP Pulse Ox 02/08/20 12:10 97.9 F 66 20 113/59 L 93 L 02/08/20 10:05 98.3 F 63 18 128/69 97 02/08/20 03:15 98.6 F 60 18 110/59 L 100 Weight Admit Weight 204 lb 11.2 oz Weight 193 lb 14.4 oz I&O: 02/07/20 02/08/20 02/09/20 06:59 06:59 06:59 Intake Total 240 1250 118 Output Total 300 1800 Balance -60 -550 118 Result Diagrams: 02/05/20 04:41 02/05/20 04:41 Additional Labs: Accuchecks 02/08/20 02/08/20 02/07/20 12:06 04:53 20:44 POC Glucose 138 H 133 H 267 H 02/07/20 16:58 POC Glucose 292 H Hospitalist ROS - Review of Systems Cardiovascular: denies: chest pain, palpitations, orthopnea, paroxysmal noc. dyspnea, edema, light headedness, other Gastrointestinal: denies: nausea, vomiting, abdominal pain, diarrhea, constipation, melena, hematochezia, other Genitourinary: denies: dysuria, frequency, incontinence, hematuria, retention, other - Medication Medications: Active Medications Generic Name Dose Route Start Last Admin Trade Name Freq PRN Reason Stop Dose Admin Acetaminophen 650 mg 01/29/20 15:14 01/31/20 11:55 Acetaminophen 325 Mg Tab PO 650 mg Q6H PRN Administration Headache/Fever/Mild Pain (1-3) Alogliptin Benzoate 25 mg 01/30/20 09:00 02/08/20 09:54 Alogliptin 25 Mg Tab PO 25 mg DAILY PIPO Administration Amlodipine Besylate 10 mg 01/30/20 09:00 02/08/20 09:57 Amlodipine 10 Mg Tab PO 10 mg DAILY PIPO Administration Ascorbic Acid 1,000 mg 01/30/20 09:00 02/08/20 09:57 Ascorbic Acid 500 Mg Chewable Tablet PO 1,000 mg DAILY PIPO Administration Atorvastatin Calcium 10 mg 01/30/20 09:00 02/08/20 09:57 Atorvastatin Calcium 10 Mg Tab PO 10 mg DAILY PIPO Administration Bisacodyl 10 mg 02/03/20 08:12 02/05/20 08:27 Bisacodyl 5 Mg Tab PO 10 mg DAILYPRN PRN Administration Constipation Dexamethasone 6 mg 02/04/20 08:00 02/08/20 09:54 Dexamethasone 4 Mg Tab PO 6 mg QAM-WM PIPO Administration Enoxaparin Sodium 40 mg 01/29/20 21:00 02/08/20 09:54 Enoxaparin Sodium 40 Mg/0.4 Ml Syringe SC 40 mg BID PIPO Administration Famotidine 20 mg 02/03/20 09:00 02/08/20 09:56 Famotidine 20 Mg Tab PO 20 mg BID PIPO Administration Guaifenesin 600 mg 02/01/20 21:00 02/08/20 09:54 Guaifenesin Er 600 Mg Tab PO 600 mg Q12HR PIPO Administration Insulin Human Lispro 0 units 02/03/20 08:10 02/07/20 18:26 Humalog 300 Units/3 Ml Vial SC 6 unit .MODERATE SLIDING SC PRN Administration Moderate Correctional Scale Insulin Human Lispro 0 units 02/03/20 08:10 02/07/20 21:03 Humalog 300 Units/3 Ml Vial SC 3 unit .BEDTIME SLIDING SC PRN Administration Bedtime Correctional Scale Metoprolol Succinate 50 mg 01/30/20 21:00 02/07/20 20:41 Metoprolol Succinate Xl 50 Mg Tab PO 50 mg HS PIPO Administration Miscellaneous Medication 25 mg 01/30/20 09:00 02/08/20 10:27 Empagliflozin 25 Mg Tab PO Not Given DAILY PIPO Ramipril 10 mg 01/30/20 09:00 02/08/20 09:56 Ramipril 5 Mg Cap PO 10 mg DAILY PIPO Administration Senna/Docusate Sodium 2 tab 02/03/20 08:12 02/07/20 21:06 Senokot S 8.6-50 Mg Tab PO 2 tab BID PRN Administration Constipation Sodium Chloride 10 ml 01/29/20 21:00 02/08/20 09:54 Flush - Normal Saline 10 Ml Syringe IVF 10 ml Q12HR PIPO Administration Sodium Chloride 10 ml 01/29/20 19:45 02/03/20 10:10 Flush - Normal Saline 10 Ml Syringe IVF 10 ml PRN PRN Administration Saline Flush Venlafaxine HCl 37.5 mg 01/30/20 09:00 02/08/20 09:56 Venlafaxine Xr 37.5 Mg Cap PO 37.5 mg DAILY PIPO Administration Zinc Sulfate 220 mg 01/30/20 09:00 11 09:56 Zinc Sulfate 220 Mg Cap PO 220 mg DAILY PIPO Administration - Exam Heart: negative: RRR, no murmur, no gallops, no rubs, normal peripheral pulses, irregular, diminshed peripheral pulses, murmur present, II/IV, III/IV Respiratory: negative: CTAB, no wheezes, no rales, no ronchi, normal chest expansion, no tachypnea, normal percussion, rales, rhonchi, tachypneic, wheezes Gastrointestinal: negative: soft, non-tender, non-distended, normal bowel sounds, no palpable masses, no hepatomegaly, no splenomegaly, no bruit, no guarding, no rigidity, tender to palpation, distended, diminished bowl sounds, voluntary guarding Extremities: negative: no cyanosis, no clubbing, no edema, 1+ LE edema, 2+ LE edema, clubbing Hosp A/P (1) Acute respiratory failure with hypoxia Code(s): J96.01 - ACUTE RESPIRATORY FAILURE WITH HYPOXIA Status: Acute (2) Pneumonia due to COVID-19 virus Code(s): U07.1 - COVID-19; J12.89 - OTHER VIRAL PNEUMONIA Status: Acute (3) Diabetes mellitus Code(s): E11.9 - TYPE 2 DIABETES MELLITUS WITHOUT COMPLICATIONS Status: Chronic Qualifiers: Diabetes mellitus type: type 2 Diabetes mellitus terminal clerk insulin use: with terminal clerk use Diabetes mellitus complication status: without complication Qualified Code(s): E11.9 - Type 2 diabetes mellitus without complications; Z79.4 - buttermilk drier operator (current) use of insulin (4) Dyslipidemia Code(s): E78.5 - HYPERLIPIDEMIA, UNSPECIFIED Status: Chronic (5) Hypertension Code(s): I10 - ESSENTIAL (PRIMARY) HYPERTENSION Status: Chronic Qualifiers: Hypertension type: essential hypertension Qualified Code(s): I10 - Essential (primary) hypertension (6) Obesity (BMI 30.0-34.9) Code(s): E66.9 - OBESITY, UNSPECIFIED Status: Chronic - Plan Patient continues to be on high flow. We will continue steroids and DVT prophylaxis. Patient desaturates on minimal exertion. Denies any diarrhea is eating well. Continue to monitor her inflammatory markers. 02/07 will continue to trend her markers. she feels well but still on high flow. She is on steroids and dvt ppx.
[2020-02-08] MEDS: HumaLOG 300 UNITS/3 ML VIAL SC PRN ×2 (18:50→20:24)
[2020-02-09 05:00] LABS: #Lymphocytes 1.6 thou/uL (1.20-3.40); #Monocytes 0.8 thou/uL (0.11-0.59); #Neutrophils 10.6 thou/uL (1.40-6.50); %Basophils 0.1 % (0.0-1.0); %Eosinophils 0.2 % (0.0-10.0); %Lymphocytes 12.3 % (21.0-51.0); %Monocytes 6.1 % (0.0-10.0); %Neutrophils 81.3 % (42.0-75.0); Hemoglobin 13.1 g/dL (12.0-16.0); Mean Corpuscular HGB CONC 33.7 g/dL (32.0-36.0); Mean Corpuscular Hemoglobin 30.3 pg (27.0-31.0); Mean Corpuscular Volume 89.8 fL (78.0-98.0); Mean Platelet Volume 8.6 fL (7.4-10.4); Platelet Count 212 thou/uL (130-400); RBC Distribution Width 11.6 % (11.5-14.5); Red Blood Cell (RBC) Count 4.33 mill/uL (4.20-5.40)
[2020-02-09 05:30] LABS: ALT (SGPT) 31 U/L (8-55); AST (SGOT) 18 U/L (5-34); Albumin 3.1 g/dL (3.4-4.8); Alkaline Phosphatase 40 U/L (40-110); Anion Gap 11 mmol/L (10-20); BUN (Urea Nitrogen) 23 mg/dL (9.8-20.1); Bilirubin, Total 0.7 mg/dL (0.2-1.2); CRP (Inflammatory) Less than 0.50 mg/dL (= or < 0.5); Calc. Creatinine Clearance 93 mL/min (70-130); Calcium 8.5 mg/dL (7.8-10.44); Carbon Dioxide 31 mmol/L (23-31); Chloride 98 mmol/L (98-107); Estimated GFR-MDRD 76; Globulin 2.7 g/dL (2.4-3.5); Glucose 122 mg/dL (83-110); Potassium 4.5 mmol/L (3.5-5.1); Protein, Total 5.8 g/dL (6.0-8.3); Sodium 135 mmol/L (136-145)
[2020-02-09] MEDS ORDERED: Insulin Glargine 8 UNITS in Pre-Filled Syringe 1 EACH SC SCH (08:30)
[2020-02-09] MEDS: Dexamethasone 4 MG TAB PO SCH (10:11)
[2020-02-09] MEDS: Amlodipine 10 MG TAB PO SCH (10:12)
[2020-02-09] MEDS: Alogliptin 25 MG TAB PO SCH (10:12)
[2020-02-09] MEDS: Ascorbic Acid 500 mg Chewable Tablet PO SCH (10:13)
[2020-02-09] MEDS: Atorvastatin Calcium 10 MG TAB PO SCH (10:13)
[2020-02-09] MEDS: guaiFENesin ER 600 MG TAB PO SCH ×2 (10:14→20:13)
[2020-02-09] MEDS: Famotidine 20 MG TAB PO SCH ×2 (10:14→20:13)
[2020-02-09] MEDS: Enoxaparin Sodium 40 MG/0.4 ML SYRINGE SC SCH ×2 (10:14→20:12)
[2020-02-09] MEDS: Empagliflozin 25 MG TAB PO SCH (10:14)
[2020-02-09] MEDS: Ramipril 5 MG CAP PO SCH (10:14)
[2020-02-09] MEDS: Zinc Sulfate 220 MG CAP PO SCH (10:16)
[2020-02-09] MEDS: Venlafaxine XR 37.5 MG CAP PO SCH (10:16)
[2020-02-09] MEDS ORDERED: Polyethylene Glycol 3350 17 GM Packet PO SCH (12:00)
[2020-02-09] MEDS: HumaLOG 300 UNITS/3 ML VIAL SC PRN ×3 (12:29→20:11)
--- NOTE | 2020-02-09 13:08 | PDOC.HOSPP ---
- Subjective Encounter Date: 02/09/20 Encounter Time: 10:00 Subjective: pt up in bed feels well. she is off high flow. - Objective Vital Signs & Weight: Vital Signs (12 hours) Temp Pulse Resp BP Pulse Ox 02/09/20 10:37 98.2 F 69 17 114/58 L 98 02/09/20 04:00 62 18 122/63 99 Weight Admit Weight 204 lb 11.2 oz Weight 193 lb 14.4 oz I&O: 02/08/20 02/09/20 02/10/20 06:59 06:59 06:59 Intake Total 1250 638 Output Total 1800 Balance -550 638 Result Diagrams: 02/09/20 04:19 02/09/20 04:19 Additional Labs: Accuchecks 02/09/20 02/08/20 02/08/20 10:47 20:18 16:27 POC Glucose 168 H 307 H 218 H Hospitalist ROS - Review of Systems Cardiovascular: denies: chest pain, palpitations, orthopnea, paroxysmal noc. dyspnea, edema, light headedness, other Gastrointestinal: denies: nausea, vomiting, abdominal pain, diarrhea, constipation, melena, hematochezia, other Genitourinary: denies: dysuria, frequency, incontinence, hematuria, retention, other - Medication Medications: Active Medications Generic Name Dose Route Start Last Admin Trade Name Freq PRN Reason Stop Dose Admin Acetaminophen 650 mg 01/29/20 15:14 01/31/20 11:55 Acetaminophen 325 Mg Tab PO 650 mg Q6H PRN Administration Headache/Fever/Mild Pain (1-3) Alogliptin Benzoate 25 mg 01/30/20 09:00 02/09/20 10:12 Alogliptin 25 Mg Tab PO 25 mg DAILY PIPO Administration Amlodipine Besylate 10 mg 01/30/20 09:00 02/09/20 10:12 Amlodipine 10 Mg Tab PO 10 mg DAILY PIPO Administration Ascorbic Acid 1,000 mg 01/30/20 09:00 02/09/20 10:13 Ascorbic Acid 500 Mg Chewable Tablet PO 1,000 mg DAILY PIPO Administration Atorvastatin Calcium 10 mg 01/30/20 09:00 02/09/20 10:13 Atorvastatin Calcium 10 Mg Tab PO 10 mg DAILY PIPO Administration Bisacodyl 10 mg 02/03/20 08:12 02/05/20 08:27 Bisacodyl 5 Mg Tab PO 10 mg DAILYPRN PRN Administration Constipation Dexamethasone 6 mg 02/04/20 08:00 02/09/20 10:11 Dexamethasone 4 Mg Tab PO 6 mg QAM-WM PIPO Administration Enoxaparin Sodium 40 mg 01/29/20 21:00 02/09/20 10:14 Enoxaparin Sodium 40 Mg/0.4 Ml Syringe SC 40 mg BID PIPO Administration Famotidine 20 mg 02/03/20 09:00 02/09/20 10:14 Famotidine 20 Mg Tab PO 20 mg BID PIPO Administration Guaifenesin 600 mg 02/01/20 21:00 02/09/20 10:14 Guaifenesin Er 600 Mg Tab PO 600 mg Q12HR PIPO Administration Insulin Human Lispro 0 units 02/03/20 08:10 02/09/20 12:29 Humalog 300 Units/3 Ml Vial SC 2 unit .MODERATE SLIDING SC PRN Administration Moderate Correctional Scale Insulin Human Lispro 0 units 02/03/20 08:10 02/08/20 20:24 Humalog 300 Units/3 Ml Vial SC 4 unit .BEDTIME SLIDING SC PRN Administration Bedtime Correctional Scale Metoprolol Succinate 50 mg 01/30/20 21:00 02/08/20 20:05 Metoprolol Succinate Xl 50 Mg Tab PO 50 mg HS PIPO Administration Miscellaneous Medication 25 mg 01/30/20 09:00 02/09/20 10:14 Empagliflozin 25 Mg Tab PO 25 mg DAILY PIPO Administration Polyethylene Glycol 17 gm 02/09/20 12:00 02/09/20 12:29 Polyethylene Glycol 3350 17 Gm Packet PO 02/09/20 14:00 17 gm NOW PIPO Administration Ramipril 10 mg 01/30/20 09:00 02/09/20 10:14 Ramipril 5 Mg Cap PO 10 mg DAILY PIOP Administration Senna/Docusate Sodium 2 tab 02/03/20 08:12 02/07/20 21:06 Senokot S 8.6-50 Mg Tab PO 2 tab BID PRN Administration Constipation Sodium Chloride 10 ml 01/29/20 21:00 02/09/20 10:15 Flush - Normal Saline 10 Ml Syringe IVF 10 ml Q12HR PIPO Administration Sodium Chloride 10 ml 01/29/20 19:45 02/03/20 10:10 Flush - Normal Saline 10 Ml Syringe IVF 10 ml PRN PRN Administration Saline Flush Venlafaxine HCl 37.5 mg 01/30/20 09:00 02/09/20 10:16 Venlafaxine Xr 37.5 Mg Cap PO 37.5 mg DAILY PIPO Administration Zinc Sulfate 220 mg 01/30/20 09:00 02/09/20 10:16 Zinc Sulfate 220 Mg Cap PO 220 mg DAILY PIPO Administration - Exam Heart: negative: RRR, no murmur, no gallops, no rubs, normal peripheral pulses, irregular, diminshed peripheral pulses, murmur present, II/IV, III/IV Respiratory: negative: CTAB, no wheezes, no rales, no ronchi, normal chest expansion, no tachypnea, normal percussion, rales, rhonchi, tachypneic, wheezes Gastrointestinal: negative: soft, non-tender, non-distended, normal bowel sounds, no palpable masses, no hepatomegaly, no splenomegaly, no bruit, no guarding, no rigidity, tender to palpation, distended, diminished bowl sounds, voluntary guarding Extremities: negative: no cyanosis, no clubbing, no edema, 1+ LE edema, 2+ LE edema, clubbing Hosp A/P (1) Acute respiratory failure with hypoxia Code(s): J96.01 - ACUTE RESPIRATORY FAILURE WITH HYPOXIA Status: Acute (2) Pneumonia due to COVID-19 virus Code(s): U07.1 - COVID-19; J12.89 - OTHER VIRAL PNEUMONIA Status: Acute (3) Diabetes mellitus Code(s): E11.9 - TYPE 2 DIABETES MELLITUS WITHOUT COMPLICATIONS Status: C hronic Qualifiers: Diabetes mellitus type: type 2 Diabetes mellitus petroleum terminal plant operator insulin use: with petroleum terminal plant operator use Diabetes mellitus complication status: without complication Qualified Code(s): E11.9 - Type 2 diabetes mellitus without complications; Z79.4 - truck terminal manager (current) use of insulin (4) Dyslipidemia Code(s): E78.5 - HYPERLIPIDEMIA, UNSPECIFIED Status: Chronic (5) Hypertension Code(s): I10 - ESSENTIAL (PRIMARY) HYPERTENSION Status: Chronic Qualifiers: Hypertension type: essential hypertension Qualified Code(s): I10 - Essential (primary) hypertension (6) Obesity (BMI 30.0-34.9) Code(s): E66.9 - OBESITY, UNSPECIFIED Status: Chronic - Plan Patient continues to be on high flow. We will continue steroids and DVT prophylaxis. Patient desaturates on minimal exertion. Denies any diarrhea is eating well. Continue to monitor her inflammatory markers. 02/07 will continue to trend her markers. she feels well but still on high flow. She is on steroids and dvt ppx. 02/08 she is doing well. she is on 2L NC. if she does well will discharge her home in am.
[2020-02-09] MEDS: Senokot S 8.6-50 MG TAB PO SCH (20:12)
[2020-02-10 05:49] LABS: #Eosinphils 0.1 thou/uL (0.0-0.7); #Lymphocytes 1.8 thou/uL (1.20-3.40); #Monocytes 0.9 thou/uL (0.11-0.59); #Neutrophils 11.4 thou/uL (1.40-6.50); %Basophils 0.1 % (0.0-1.0); %Eosinophils 0.5 % (0.0-10.0); %Lymphocytes 12.9 % (21.0-51.0); %Neutrophils 80.5 % (42.0-75.0); Hemoglobin 13.2 g/dL (12.0-16.0); Mean Corpuscular HGB CONC 33.5 g/dL (32.0-36.0); Mean Corpuscular Hemoglobin 30.8 pg (27.0-31.0); Mean Corpuscular Volume 91.9 fL (78.0-98.0); Mean Platelet Volume 8.6 fL (7.4-10.4); Platelet Count 194 thou/uL (130-400); RBC Distribution Width 11.7 % (11.5-14.5); Red Blood Cell (RBC) Count 4.29 mill/uL (4.20-5.40); White Blood Cell (WBC) Count 14.1 thou/uL (4.8-10.8)
[2020-02-10 06:17] LABS: ALT (SGPT) 36 U/L (8-55); AST (SGOT) 18 U/L (5-34); Albumin 3.1 g/dL (3.4-4.8); Alkaline Phosphatase 41 U/L (40-110); Anion Gap 10 mmol/L (10-20); BUN (Urea Nitrogen) 22 mg/dL (9.8-20.1); Bilirubin, Total 0.5 mg/dL (0.2-1.2); Calc. Creatinine Clearance 92 mL/min (70-130); Calcium 8.4 mg/dL (7.8-10.44); Carbon Dioxide 31 mmol/L (23-31); Chloride 99 mmol/L (98-107); Estimated GFR-MDRD 75; Globulin 2.6 g/dL (2.4-3.5); Glucose 145 mg/dL (83-110); Potassium 4.4 mmol/L (3.5-5.1); Protein, Total 5.7 g/dL (6.0-8.3); Sodium 136 mmol/L (136-145)
[2020-02-10] MEDS: Venlafaxine XR 37.5 MG CAP PO SCH (07:54)
[2020-02-10] MEDS: Dexamethasone 4 MG TAB PO SCH (07:54)
[2020-02-10] MEDS: Alogliptin 25 MG TAB PO SCH (07:54)
[2020-02-10] MEDS: Ramipril 5 MG CAP PO SCH (07:54)
[2020-02-10] MEDS: Enoxaparin Sodium 40 MG/0.4 ML SYRINGE SC SCH (07:54)
[2020-02-10] MEDS: Empagliflozin 25 MG TAB PO SCH (07:55)
[2020-02-10] MEDS: Famotidine 20 MG TAB PO SCH (07:55)
[2020-02-10] MEDS: guaiFENesin ER 600 MG TAB PO SCH (07:55)
[2020-02-10] MEDS: Zinc Sulfate 220 MG CAP PO SCH (07:55)
[2020-02-10] MEDS: Ascorbic Acid 500 mg Chewable Tablet PO SCH (07:55)
[2020-02-10] MEDS: Atorvastatin Calcium 10 MG TAB PO SCH (07:56)
[2020-02-10] MEDS: Senokot S 8.6-50 MG TAB PO PRN (07:56)
[2020-02-10] MEDS: Amlodipine 10 MG TAB PO SCH (07:56)
[2020-02-10 10:33] VITALS: TEMP 96.8
[2020-02-10] MEDS: Senokot S 8.6-50 MG TAB PO SCH (10:48)
[2020-02-10 15:25] VITALS: BP 125/71
[2020-02-10] MEDS: HumaLOG 300 UNITS/3 ML VIAL SC PRN (17:33)
--- NOTE | 2020-02-10 22:32 | DIS ---
DATE OF ADMISSION: 01/29/2020 DATE OF DISCHARGE: 02/10/2020 DISCHARGE DIAGNOSES: 1. Acute hypoxic respiratory failure. 2. COVID pneumonia. 3. Diabetes. 4. Dyslipidemia. HOSPITAL COURSE: The patient is a 74-year-old female, who initially presented to the hospital with complaints of shortness of breath. The patient at this time was noted to be COVID pneumonia. She initially was on nasal cannula, then was transitioned up to high-flow. The patient continued to improve through the hospital stay. She was on DVT prophylaxis and also on steroids. The patient continued to improve through the hospital stay. She was then weaned off the high-flow. She was monitored for another 24 hours. She was on 2 L nasal cannula, did well. She will be discharged home. She will follow up with her primary as outpatient. HOME MEDICATIONS: Will be 1. Decadron 6 mg for the next four days. 2. Atorvastatin 10 mg daily. 3. Metoprolol 50 mg daily. 4. Ramipril 10 mg daily. 5. Norvasc 10 mg daily. 6. Effexor 37.5 daily. 7. Jardiance 25 mg daily. 8. Januvia 100 mg p.o. daily. PHYSICAL EXAMINATION: VITAL SIGNS: Temperature of 97.8, 61, 16, 98% on 2 L, 125/71. GENERAL: She is awake, alert, and oriented x3. Does not appear in distress. CV: S1, S2 present. No murmurs, rubs, gallops. Again, she will be discharged home. She will follow up with her primary. Job ID: [id number]
== END 2020-02-10 17:38 | disposition home or self-care (01) | DRG 177 ==
LOC: ERS 11:06 → OBSVTOIN 15:49 → 2SW 15:49
PROVIDERS: ADMIT Internal Medicine; ATTEND Internal Medicine
PROC: XW033E5 Introduction of Remdesivir Anti-infective into Peripheral Vein, Percutaneous Approach, New Technology Group 5 (ICD-10-PCS; principal; 2020-01-29)
DX: U07.1 COVID-19 (principal); J96.01 Acute respiratory failure with hypoxia; J12.89 Other viral pneumonia; N30.00 Acute cystitis without hematuria; E11.9 Type 2 diabetes mellitus without complications; E66.9 Obesity, unspecified; E78.00 Pure hypercholesterolemia, unspecified; I10 Essential (primary) hypertension; Z90.49 Acquired absence of other specified parts of digestive tract; Z79.899 Other long term (current) drug therapy; Z68.29 Body mass index [BMI] 29.0-29.9, adult; Z79.84 Long term (current) use of oral hypoglycemic drugs; B96.1 Klebsiella pneumoniae [K. pneumoniae] as the cause of diseases classified elsewhere
CPT/HCPCS: 36415; 36416; 51701; 71045; 71275; 80048; 80053; 80076; 81003; 81015; 82553; 82728; 82805; 83605; 83615; 84484; 85025; 85379; 86140; 87040; 87077; 87086; 87186; 93005; 94664; 96365; 96367; J0456; J0696; J1100; J1650; J1815; J3490; J7050; J8540; Q9967